=== PATIENT | female | born 1940 | race Caucasian/White ===

== ENCOUNTER → 2018-06-10 | Outpatient (CLI) | payer OTHER ==
[~2018-06-10] MED LIST: ASPI1TAB83 PO; CALC-440 PO; CARV6.252 PO; CHOL100027 PO; EZET10TA47 PO; GLYB5TAB8 PO; LYSI500C4 PO; MAGN400C2 PO; METF1000 PO; MULTTAB58 PO; NIAC500T83 PO; NXM/40 PO; SIMV40TA4 PO; SITA50TA PO
[2018-06-10 17:23] LABS: ALT/SGPT 19 U/L (12-78); AST/SGOT 12 U/L (15-37); BLOOD UREA NITROGEN 16 mg/dl (7-18); CALCIUM 8.9 mg/dl (8.5-10.1); CARBON DIOXIDE 27 mmol/L (21-32); CHOLESTEROL 109 mg/dl (0-200); CREATININE 1.01 mg/dl (0.60-1.20); GLUCOSE 101 mg/dl (70-99); LDL CHOLESTEROL CALCULATED 25 mg/dl; POTASSIUM 3.8 mmol/L (3.5-5.1); SODIUM 140 mmol/L (136-145)
[2018-06-10 17:30] LABS: CREATININE RANDOM URINE 66.8 mg/dl
[2018-06-11 06:26] LABS: HEMOGLOBIN A1C 6.2 % (4.5-5.6)
== END | disposition home or self-care (01) ==
LOC: C.LABPBG 15:19
PROVIDERS: ATTEND Family Medicine
DX: E11.9 Type 2 diabetes mellitus without complications (principal); E78.5 Hyperlipidemia, unspecified

== ENCOUNTER 2022-08-06 09:27 | Observation (INO) ==
[~2022-08-06 09:27] MED LIST changes: -ASPI1TAB83 PO; -CALC-440 PO; -CARV6.252 PO; -CHOL100027 PO; -EZET10TA47 PO; -GLYB5TAB8 PO; -LYSI500C4 PO; -MAGN400C2 PO; -METF1000 PO; -MULTTAB58 PO; -NIAC500T83 PO; -NXM/40 PO; +RAPID SEQUENCE INDUCTION BAG ONE; -SIMV40TA4 PO; -SITA50TA PO
[2022-08-06] MEDS ORDERED: OPTIRAY 300 500mL IV ONE (09:38)
--- NOTE | 2022-08-06 10:05 | CT Scan Report ---
UNENHANCED CT OF THE BRAIN; CT ANGIOGRAM OF THE BRAIN; CT ANGIOGRAM OF THE NECK CLINICAL HISTORY: Change in mental status. Strokelike symptoms. COMPARISON STUDY: MRI of the brain dated 03/21/2019. TECHNIQUE: Unenhanced axial CT scan of the brain is performed. Subsequently, following the IV adminis tration of 110 of [address] 300, CT angiogram of the head and neck was performed from the aortic arch t o the vertex. Images are reviewed in the axial, sagittal, and coronal planes. 3-D MIPS images are cre ated and assessed. IV contrast was administered without complication. All measurements were calculate d based on NASCET criteria. A dose lowering technique was utilized adhering to the principles of ALA RA. 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 There is no hemorrhage, mass effect, or evidence of acute territorial isc hemia by CT criteria. There is no evidence of enhancing mass lesion on the angiogram phase images. Th e ventricles, sulci, and cisterns are prominent secondary to involutional change. Crum-white matter d ifferentiation is preserved. No extra-axial fluid collection is seen. Thoracic aorta: Visualized portions of the thoracic aorta are normal in caliber. The aortic arch demo nstrates 4-vessel variant anatomy. The left vertebral artery arises directly from the arch. Right carotid arterial system: The right common carotid artery is widely patent, as are the right int ernal and external carotid arteries. Calcified plaque is noted in the carotid bulb. Left carotid arterial system: The left common carotid artery is widely patent, as are the left internal recruiter al and external carotid arteries. Calcified plaque is noted in the carotid bulb. Vertebral arteries: The vertebral arteries are widely patent bilaterally noting right-sided dominance . Subclavian arteries: Widely patent bilaterally. Intracranial vasculature: There is atherosclerotic calcification of the cavernous carotid arteries. T he [place] is developmentally complete. The internal carotid arteries are patent at the skul l base, as are the anterior and middle cerebral arteries bilaterally. The vertebrobasilar system and posterior cerebral arteries are widely patent. The right vertebral artery is dominant. There is no an eurysm, high-grade stenosis, or focal vessel cut off seen throughout the intracranial circulation. Jugular veins: Patent bilaterally. Dural sinuses: Patent. Lung apices: Partially visualized upper lobe lung parenchyma appears clear. Soft tissues: The visualized pharyngeal soft tissues are normal in appearance noting angiographic pha se technique. The oropharyngeal airway appears widely patent. The salivary and thyroid glands are nor mal in appearance. No cervical lymphadenopathy is seen. Skeletal structures: The skeletal structures are osteopenic. The calvarium appears intact. The cervic al spine is maintained noting multilevel spondylosis. No lytic or blastic lesion is seen. Orbits: The bony orbits are intact. Orbital contents are normal as visualized. Sinuses and mastoids: The paranasal sinuses are clear. The mastoid air cells are well pneumatized. Ce rumen is noted in the right external auditory canal. IMPRESSION: 1. There is no hemorrhage, mass effect, or evidence of acute territorial ischemia by CT criteria. 2. Unremarkable CT angiogram of the brain. 3. Unremarkable CT angiogram of the neck. ACT 112: Negative or not required by law. Electronically signed by: Gavin Reyes M.D. 08/06/2022 10:03 AM
[2022-08-06 10:06] LABS: Basophils # (auto) 0.07 K/uL (0-0.2); Basophils % (auto) 1.2 %; Eosinophils # (auto) 0.34 K/uL (0-0.50); Eosinophils % (auto) 5.9 %; Hematocrit (blood only) 38.7 % (34.1-44.9); Immature Granulocytes # (auto) 0.01 K/uL (0.00-0.02); Immature Granulocytes % (auto) 0.2 %; Lymphocytes # (auto) 2.62 K/uL (1.2-3.4); Lymphocytes % (auto) 45.4 %; Mean Corpuscular Hemoglobin 30.4 pg (25.0-34.0); Mean Corpuscular Hgb Conc 33.6 g/dL (32.0-36.0); Mean Corpuscular Volume 90.6 fL (80.0-100.0); Mean Platelet Volume 10.5 fL (9.4-12.3); Monocytes # (auto) 0.43 K/uL (0.24-0.82); Monocytes % (auto) 7.5 %; Neutrophils % (auto) 39.8 %; Platelet Count 220 K/uL (130-400); RDW Coefficient of Variation 14.6 % (11.5-14.5); RDW Standard Deviation 48.8 fL (36.4-46.3); Red Blood Count 4.27 M/uL (3.93-5.22); White Blood Count 5.77 K/ul (4.8-10.8)
[2022-08-06 10:21] LABS: INR 1.1 (0.9-1.1); Partial Thromboplastin Ratio 0.9; Partial Thromboplastin Time 23.9 Seconds (21.0-31.0); Prothrombin Time 11.2 Seconds (9.0-12.0)
[2022-08-06 10:25] LABS: Appearance Urine Cloudy (Clear); Bilirubin Urine Negative (Negative); Blood Urine 1+ (Negative); Color Urine Yellow; Glucose Urine UA 2+ (Negative); Ketones Urine Negative (Negative); Leukocyte Esterase Urine Negative (Negative); Nitrite Urine Negative (Negative); Protein Urine Negative (Negative); RBC Urine Automated 0-4 /hpf (0-4); Specific Gravity Urine 1.041 (1.000-1.030); Urobilinogen Urine Negative (Negative)
--- NOTE | 2022-08-06 10:30 | XRay Report ---
SINGLE VIEW CHEST CLINICAL HISTORY: Strokelike symptoms. FINDINGS: An AP, portable, upright chest radiograph is compared to study dated 04/28/2022 and correlat ed with chest CT dated 06/27/2022. The cardiomediastinal silhouette is unremarkable. The lungs and ple ural spaces are clear. No pneumothorax is seen. The skeletal structures are osteopenic. The bony thor ax is grossly intact. IMPRESSION: No active disease in the chest. ACT 112: Negative or not required by law. Electronically signed by: Gavin Reyes M.D. 08/06/2022 10:29 AM
[2022-08-06 10:32] LABS: Albumin Globulin Ratio 1.2 (0.9-2); Albumin Level 3.8 gm/dl (3.4-5.0); BUN Creatinine Ratio 21.3 (10-20); Calcium 9.3 mg/dl (8.5-10.1); Creatinine Clr Calc Pharmacy 24.7 ml/min; Est GFR (African American) 41.9 ml/min; Est GFR (Non-African American) 36.1 ml/min; Globulin 3.2 gm/dl (2.5-4.0); Magnesium 1.8 mg/dl (1.7-2.4); Potassium 3.9 mmol/L (3.5-5.1)
[2022-08-06 10:39] LABS: Troponin I High Sensitivity 8.3 pg/ml (0-14)
[2022-08-06] MEDS ORDERED: ACETAMINOPHEN 500 MG TAB PO STA (10:53)
[2022-08-06 11:01] LABS: Amorphous Sediment Urine Present (None Prsent); Bacteria Urine Automated 1+ (Negative)
--- NOTE | 2022-08-06 11:09 | Emergency Department Note ---
History of Present Illness General Chief complaint: Neuro Symptoms/Deficit History of Present Illness 82-year-old female presents to the ED with a chief complaint alteration in mental status. The patient awoke this morning and was feeling fine. She states that she developed a bad headache and a dizzy spell and then found herself on the floor. The family states that she was doing some work in the kitchen when they found her on the floor. They believe that she fell but mostly collapsed onto her self. The did not feel that she struck her head. The patient, according to family seemed to be slurring her speech and not speaking normally. EMS was called around 8:25 AM. They found the patient have a right-sided facial droop and slurred speech and garbled speech. The patient was transported to the ED for evaluation. They did report that her heart rate at 1 point was in the 30s. This patient started having improvement of her symptoms shortly after she arrived to the ED and went over to CT scan. By the time she arrived to room A1 he was awake, alert and oriented and only complained of feeling a little shaky. The family states that after she had had her episode at home, she was not able to answer questions for a minute or 2. She was then able to answer questions and then went back to a state where she was unable to answer questions. This happened a couple of times while she was at home. The patient states that her headache went away upon her evaluation here but then it returned while she was here. It was a frontal headache. Home Medications Medication Instructions Recorded Confirmed Type multivitamin 1 tab PO DAILY #30 tabs 04/24/19 08/06/22 Rx cholecalciferol (vitamin D3) 50 2,000 units PO DAILY #90 tabs 10/27/19 08/06/22 Rx mcg (2,000 unit) tablet albuterol sulfate 90 mcg/actuation 2 puff inhalation Q6H PRN 01/09/22 08/06/22 Rx aerosol inhaler (Ventolin HFA) shortness of breath or wheezing #54 grams famotidine 40 mg tablet 40 mg PO BID #180 tabs 01/09/22 08/06/22 Rx fluticasone furoate 100 1 inh inhalation DAILY #30 ea 01/09/22 08/06/22 Rx mcg/actuation blister powder for inhalation (Arnuity Ellipta) lysine 1,000 mg tablet 1,000 mg PO DAILY #90 tabs 01/09/22 08/06/22 Rx omega-3 acid ethyl esters 1 gram 1 cap PO DAILY #30 caps 01/09/22 08/06/22 Rx capsule blood sugar diagnostic #100 ea 03/09/22 07/24/22 Rx lancets 33 gauge (WilliamTouch Delica #100 ea 03/09/22 07/24/22 Rx Lancets) meclizine 12.5 mg tablet 12.5 mg PO TID PRN Dizziness 03/14/22 08/06/22 History isosorbide dinitrate 30 mg tablet 30 mg PO DAILY #30 tabs 05/19/22 08/06/22 Rx amlodipine 2.5 mg tablet 2.5 mg PO DAILY #90 tabs 07/11/22 08/06/22 Rx clopidogrel 75 mg tablet 75 mg PO DAILY #90 tabs 07/11/22 08/06/22 Rx ezetimibe 10 mg tablet 10 mg PO DAILY #90 tabs 07/11/22 08/06/22 Rx lisinopril 10 mg tablet 10 mg PO DAILY #90 tabs 07/11/22 08/06/22 Rx magnesium oxide 400 mg PO DAILY #90 tabs 07/11/22 08/06/22 Rx montelukast 10 mg tablet 10 mg PO QPM #90 tabs 07/11/22 08/06/22 Rx donepezil 10 mg tablet 10 mg PO DAILY 30 days #30 tabs 07/13/22 08/06/22 Rx Wrist splint cock up #1 ea 07/24/22 07/24/22 Rx aspirin 81 mg tablet,delayed 81 mg PO DAILY 08/06/22 08/06/22 History release atorvastatin 40 mg tablet 40 mg PO HS 08/06/22 08/06/22 History cyanocobalamin (vitamin B-12) 1,000 mcg PO QAM 08/06/22 08/06/22 History 1,000 mcg tablet (Vitamin B-12) Allergies Allergy/AdvReac Type Severity Reaction Status Date / Time Penicillins Allergy Unknown hives Verified 08/06/22 10:19 omeprazole Allergy Verified 08/06/22 10:19 pantoprazole Allergy Verified 08/06/22 10:19 rabeprazole Allergy Verified 08/06/22 10:19 ranolazine [From Ranexa] Allergy Verified 08/06/22 10:19 peanut AdvReac Intermediate GI Symptoms Unverified 08/06/22 10:19 Past Med/Surg History Medical History Asthma Coronary artery disease Deafness in right ear GERD without esophagitis History of heart attack (06/2017) Hyperlipidemia Hypertension Insomnia Mild cognitive impairment Osteoarthritis Pulmonary nodule Type 2 diabetes mellitus Surgical History Cystocele with rectocele Repaired H/O heart artery stent (06/2017) History of cholecystectomy History of total hysterectomy with removal of both tubes and ovaries d/t DUB S/P cardiac catheterization 10/20/19- Dr. Edmond Bunch Family History Brother Alcoholism Son Coronary heart disease Daughter Coronary heart disease Hypertension Myocardial infarction ID age 58 Sister Dementia Other No pertinent family history Denies family history of Ovarian cancer Prostate cancer Breast cancer Colorectal cancer Social History Smoking Status: Former smoker Tobacco Type: Cigarettes Age Started Using Tobacco: 18; Age Quit Using Tobacco: 28; packs per day: 3; Years Smoked: 10; Cigarettes Per Day: 3 ppd since age 18, quit 1967; Second Hand Exposure: Yes; Hx Alcohol Use: No (previously drank "alot", could not clarify) Hx Substance Use: No Preferred Language: Cuban Communication Ability: Effective Visual Impairment: No Limitations Hearing Ability: Use of Hearing Aid Founder Required: No Beliefs That Will Affect Care: None marital status: / Current Living Situation: Family Current Living Situation Comment: lives with son in own home 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 Safe at Home: Yes Childhood Exposure to Second-Hand Smoke: Yes Diet Comment: Doesn't diet or watch what she eats. caffeine: Yes (Coffee and Tea - half cup occasional - no soda) during the past year weight has: remained stable Dental Care, Regularly: Yes Physical Activity Frequency: Daily Physical Activity Frequency Comment: Walking/stationary bike Seatbelt Use: always Sunscreen Use: Yes Review of Systems A total of 10 systems reviewed and were otherwise negative Physical Exam Vital Signs Vital Signs - 24 hr 08/06/22 09:44 08/06/22 09:45 08/06/22 09:47 Temperature 36.6 C Temperature Source Oral Pulse Rate 51 L 119 H 47 L Pulse Rate from SpO2 Sensor 55 L Respiratory Rate 22 18 18 Respiratory Effort / Characteristics Non-Labored Spontaneous Respiratory Depth Normal Blood Pressure 164/69 H Blood Pressure Mean 100 Pulse Oximetry 100 94 Oxygen Delivery Method Room Air Sepsis Recent Fever Within 48 Hours No Sepsis New/Unexplained Change in Mental Status No Sepsis Action Taken by Nursing No Action Required 08/06/22 09:47 08/06/22 09:50 08/06/22 10:00 Temperature Temperature Source Pulse Rate 61 61 Pulse Rate from SpO2 Sensor 59 L 58 L Respiratory Rate 17 17 Respiratory Effort / Characteristics Respiratory Depth Blood Pressure 164/69 H Blood Pressure Mean 100 Pulse Oximetry 100 100 Oxygen Delivery Method Sepsis Recent Fever Within 48 Hours Sepsis New/Unexplained Change in Mental Status Sepsis Action Taken by Nursing 08/06/22 10:15 08/06/22 10:15 08/06/22 10:30 Temperature Temperature Source Pulse Rate 43 L Pulse Rate from SpO2 Sensor 48 L 51 L Respiratory Rate 25 H 20 Respiratory Effort / Characteristics Respiratory Depth Blood Pressure 155/89 H 168/78 H Blood Pressure Mean 111 108 Pulse Oximetry 93 100 Oxygen Delivery Method Sepsis Recent Fever Within 48 Hours Sepsis New/Unexplained Change in Mental Status Sepsis Action Taken by Nursing CONSTITUTIONAL/VITAL SIGNS: Reviewed / noted above. GENERAL: Non-toxic in appearance. INTEGUMENTARY: Warm, dry, and Andres. HEAD: Normocephalic. EYES: without scleral icterus or trauma. ENT/OROPHARYNX: clear and moist. LYMPHADENOPATHY/NECK: Is supple without lymphadenopathy or meningismus. RESPIRATORY: Clear to auscultation bilaterally. No increased work of breathing. CARDIOVASCULAR: Regular rate and rhythm. GI/ABDOMEN: Soft and nontender. No organomegaly or pulsatile mass. EXTREMITIES: Warm and well perfused. BACK: No CVA tenderness. NEUROLOGICAL: Intact without focal deficits. PSYCHIATRIC: normal affect. MUSCULOSKELETAL: Normally developed with good muscle tone. TRIAGE NURSING DOCUMENTATION REVIEWED. Course Administered Medications Discontinued Medications Ioversol (Optiray 300 500ml) 110 ml IV ONCE ONE Stop: 08/06/22 09:39 Last Admin: 08/06/22 09:40 Dose: 110 ml Documented By: CHANTELL Thomasaneous (Rapid Sequence Induction Bag) Confirm Administered Dose 1 each .ROUTE .STK-MED ONE Stop: 08/06/22 09:23 Last Admin: 08/06/22 10:10 Dose: Not Given Documented By: HS Medical Decision Making Differential Diagnosis Differential includes acute coronary syndrome, myocardial infarction, CVA, TIA, anemia, infection, pneumonia, UTI, pyelonephritis, poor nutrition, dehydration, electrolyte disturbance,hypoglycemia. Medical Records Attestation: I reviewed the patient's medical records. Home Medications Current Medication List: was personally reviewed by me Laboratory Data Attestation: I reviewed the patient's lab results. Result diagrams: 08/06/22 09:51 08/06/22 09:51 Lab Results 08/06/22 08/06/22 08/06/22 Range/Units 09:51 09:51 09:51 WBC 5.77 (4.8-10.8) K/ul RBC 4.27 (3.93-5.22) M/uL Hgb 13.0 (12.0-16.0) g/dl Hct 38.7 (34.1-44.9) % MCV 90.6 (80.0-100.0) fL MCH 30.4 (25.0-34.0) pg MCHC 33.6 (32.0-36.0) g/dL RDW Std Deviation 48.8 H (36.4-46.3) fL RDW Coeff of Des 14.6 H (11.5-14.5) % Plt Count 220 (130-400) K/uL MPV 10.5 (9.4-12.3) fL Immature Gran % (Auto) 0.2 % Neut % (Auto) 39.8 % Lymph % (Auto) 45.4 % [place] % (Auto) 7.5 % Eos % (Auto) 5.9 % Baso % (Auto) 1.2 % Neut # (Auto) 2.30 (1.4-6.5) K/uL Lymph # (Auto) 2.62 (1.2-3.4) K/uL [place] # (Auto) 0.43 (0.24-0.82) K/uL Eos # (Auto) 0.34 (0-0.50) K/uL Baso # (Auto) 0.07 (0-0.2) K/uL Immature Gran # (Auto) 0.01 (0.00-0.02) K/uL PT 11.2 (9.0-12.0) Seconds INR 1.1 (0.9-1.1) APTT 23.9 (21.0-31.0) Seconds PTT Ratio 0.9 Sodium (136-145) mmol/L Potassium (3.5-5.1) mmol/L Chloride (98-107) mmol/L Carbon Dioxide (21-32) mmol/L Anion Gap (3-11) BUN (6-23) mg/dl Creatinine (0.6-1.2) mg/dl Est Cr Clr Drug Dosing ml/min Est GFR ( Amer) ml/min Est GFR (Non-Af Amer) ml/min BUN/Creatinine Ratio (10-20) Glucose (70-99(Fasting)) mg/dl POC Glucose (70-99) mg/dl Lactate 1.8 (0.4-2.0) mmol/L Calcium (8.5-10.1) mg/dl Magnesium (1.7-2.4) mg/dl Total Bilirubin (0.2-1.0) mg/dl AST (13-39) U/L ALT (7-52) U/L Alkaline Phosphatase (34-104) U/L Troponin I High Sens (0-14) pg/ml Total Protein (6.0-8.3) gm/dl Albumin (3.4-5.0) gm/dl Globulin (2.5-4.0) gm/dl Albumin/Globulin Ratio (0.9-2) Urine Color Urine Appearance (Clear) Urine pH (4.5-7.5) Ur Specific [place] (1.000-1.030) Urine Protein (Negative) Urine Glucose (UA) (Negative) Urine Ketones (Negative) Urine Blood (Negative) Urine Nitrite (Negative) Urine Bilirubin (Negative) Urine Urobilinogen (Negative) Ur Leukocyte Esterase (Negative) Urine WBC (Auto) (0-5) /hpf Urine RBC (Auto) (0-4) /hpf U Hyaline Cast (Auto) (0-5) /lpf U Epithel Cells (Auto) (0-5) /lpf Urine Bacteria (Auto) (Negative) Urine Crystals Uric Acid Crystals Amorphous Sediment (None Prsent) Urine Yeast Blood Type Antibody Screen 08/06/22 08/06/22 08/06/22 Range/Units 09:51 09:51 09:55 WBC (4.8-10.8) K/ul RBC (3.93-5.22) M/uL Hgb (12.0-16.0) g/dl Hct (34.1-44.9) % MCV (80.0-100.0) fL MCH (25.0-34.0) pg MCHC (32.0-36.0) g/dL RDW Std Deviation (36.4-46.3) fL RDW Coeff of Des (11.5-14.5) % Plt Count (130-400) K/uL MPV (9.4-12.3) fL Immature Gran % (Auto) % Neut % (Auto) % Lymph % (Auto) % [place] % (Auto) % Eos % (Auto) % Baso % (Auto) % Neut # (Auto) (1.4-6.5) K/uL Lymph # (Auto) (1.2-3.4) K/uL [place] # (Auto) (0.24-0.82) K/uL Eos # (Auto) (0-0.50) K/uL Baso # (Auto) (0-0.2) K/uL Immature Gran # (Auto) (0.00-0.02) K/uL PT (9.0-12.0) Seconds INR (0.9-1.1) APTT (21.0-31.0) Seconds PTT Ratio Sodium 137 (136-145) mmol/L Potassium 3.9 (3.5-5.1) mmol/L Chloride 102 (98-107) mmol/L Carbon Dioxide 26 (21-32) mmol/L Anion Gap 9 (3-11) BUN 29 H (6-23) mg/dl Creatinine 1.36 H (0.6-1.2) mg/dl Est Cr Clr Drug Dosing 24.7 ml/min Est GFR ( Amer) 41.9 ml/min Est GFR (Non-Af Amer) 36.1 ml/min BUN/Creatinine Ratio 21.3 H (10-20) Glucose 293 H (70-99(Fasting)) mg/dl POC Glucose 270 H (70-99) mg/dl Lactate (0.4-2.0) mmol/L Calcium 9.3 (8.5-10.1) mg/dl Magnesium 1.8 (1.7-2.4) mg/dl Total Bilirubin 1.0 (0.2-1.0) mg/dl AST 88 H (13-39) U/L ALT 115 H (7-52) U/L Alkaline Phosphatase 524 H (34-104) U/L Troponin I High Sens 8.3 (0-14) pg/ml Total Protein 7.0 (6.0-8.3) gm/dl Albumin 3.8 (3.4-5.0) gm/dl Globulin 3.2 (2.5-4.0) gm/dl Albumin/Globulin Ratio 1.2 (0.9-2) Urine Color Urine Appearance (Clear) Urine pH (4.5-7.5) Ur Specific [place] (1.000-1.030) Urine Protein (Negative) Urine Glucose (UA) (Negative) Urine Ketones (Negative) Urine Blood (Negative) Urine Nitrite (Negative) Urine Bilirubin (Negative) Urine Urobilinogen (Negative) Ur Leukocyte Esterase (Negative) Urine WBC (Auto) (0-5) /hpf Urine RBC (Auto) (0-4) /hpf U Hyaline Cast (Auto) (0-5) /lpf U Epithel Cells (Auto) (0-5) /lpf Urine Bacteria (Auto) (Negative) Urine Crystals Uric Acid Crystals Amorphous Sediment (None Prsent) Urine Yeast Blood Type O Positive Antibody Screen NEGATIVE 08/06/22 Range/Units 10:07 WBC (4.8-10.8) K/ul RBC (3.93-5.22) M/uL Hgb (12.0-16.0) g/dl Hct (34.1-44.9) % MCV (80.0-100.0) fL MCH (25.0-34.0) pg MCHC (32.0-36.0) g/dL RDW Std Deviation (36.4-46.3) fL RDW Coeff of Des (11.5-14.5) % Plt Count (130-400) K/uL MPV (9.4-12.3) fL Immature Gran % (Auto) % Neut % (Auto) % Lymph % (Auto) % [place] % (Auto) % Eos % (Auto) % Baso % (Auto) % Neut # (Auto) (1.4-6.5) K/uL Lymph # (Auto) (1.2-3.4) K/uL [place] # (Auto) (0.24-0.82) K/uL Eos # (Auto) (0-0.50) K/uL Baso # (Auto) (0-0.2) K/uL Immature Gran # (Auto) (0.00-0.02) K/uL PT (9.0-12.0) Seconds INR (0.9-1.1) APTT (21.0-31.0) Seconds PTT Ratio Sodium (136-145) mmol/L Potassium (3.5-5.1) mmol/L Chloride (98-107) mmol/L Carbon Dioxide (21-32) mmol/L Anion Gap (3-11) BUN (6-23) mg/dl Creatinine (0.6-1.2) mg/dl Est Cr Clr Drug Dosing ml/min Est GFR ( Amer) ml/min Est GFR (Non-Af Amer) ml/min BUN/Creatinine Ratio (10-20) Glucose (70-99(Fasting)) mg/dl POC Glucose (70-99) mg/dl Lactate (0.4-2.0) mmol/L Calcium (8.5-10.1) mg/dl Magnesium (1.7-2.4) mg/dl Total Bilirubin (0.2-1.0) mg/dl AST (13-39) U/L ALT (7-52) U/L Alkaline Phosphatase (34-104) U/L Troponin I High Sens (0-14) pg/ml Total Protein (6.0-8.3) gm/dl Albumin (3.4-5.0) gm/dl Globulin (2.5-4.0) gm/dl Albumin/Globulin Ratio (0.9-2) Urine Color Yellow Urine Appearance Cloudy A (Clear) Urine pH 8.0 H (4.5-7.5) Ur Specific [place] 1.041 H (1.000-1.030) Urine Protein Negative (Negative) Urine Glucose (UA) 2+ H (Negative) Urine Ketones Negative (Negative) Urine Blood 1+ H (Negative) Urine Nitrite Negative (Negative) Urine Bilirubin Negative (Negative) Urine Urobilinogen Negative (Negative) Ur Leukocyte Esterase Negative (Negative) Urine WBC (Auto) 1-5 (0-5) /hpf Urine RBC (Auto) 0-4 (0-4) /hpf U Hyaline Cast (Auto) 1-5 (0-5) /lpf U Epithel Cells (Auto) 5-10 H (0-5) /lpf Urine Bacteria (Auto) 1+ H (Negative) Urine Crystals Not Reportable Uric Acid Crystals [employer] Amorphous Sediment Present A (None Prsent) Urine Yeast Not Reportable Blood Type Antibody Screen Imaging Data Radiologist's Impression: Head CT 08/06/22 09:[address] OF THE BRAIN; CT ANGIOGRAM OF THE BRAIN; CT ANGIOGRAM OF THE NECK CLINICAL HISTORY: Change in mental status. Strokelike symptoms. COMPARISON STUDY: MRI of the brain dated 03/21/2019. TECHNIQUE: Unenhanced axial CT scan of the brain is performed. Subsequently, following the IV administration of 110 of Optiray 300, CT angiogram of the head and neck was performed from the aortic arch to the vertex. Images are reviewed in the axial, sagittal, and coronal planes. 3-D MIPS images are created and assessed. IV contrast was administered without complication. All measurements were calculated based on NASCET criteria. A dose lowering technique was utilized adhering to the principles of ALARA. CT DOSE: 1028.11 mGy.cm FINDINGS: Brain parenchyma: There is age-related involutional change noting mild subcortical and periventricular microangiopathic disease. There is no hemorrhage, mass effect, or evidence of acute territorial ischemia by CT criteria. There is no evidence of enhancing mass lesion on the angiogram phase images. The ventricles, sulci, and cisterns are prominent secondary to involutional change. Crum-white matter differentiation is preserved. No extra- axial fluid collection is seen. Thoracic aorta: Visualized portions of the thoracic aorta are normal in caliber. The aortic arch demonstrates 4-vessel variant anatomy. The left vertebral artery arises directly from the arch. Right carotid arterial system: The right common carotid artery is widely patent, as are the right internal and external carotid arteries. Calcified plaque is noted in the carotid bulb. Left carotid arterial system: The left common carotid artery is widely patent, as are the left internal and external carotid arteries. Calcified plaque is noted in the carotid bulb. Vertebral arteries: The vertebral arteries are widely patent bilaterally noting right-sided dominance. Subclavian arteries: Widely patent bilaterally. Intracranial vasculature: There is atherosclerotic calcification of the cavernous carotid arteries. The [place] of [place] is developmentally complete. The internal carotid arteries are patent at the skull base, as are the anterior and middle cerebral arteries bilaterally. The vertebrobasilar system and posterior cerebral arteries are widely patent. The right vertebral artery is dominant. There is no aneurysm, high-grade stenosis, or focal vessel cut off seen throughout the intracranial circulation. Jugular veins: Patent bilaterally. Dural sinuses: Patent. Lung apices: Partially visualized upper lobe lung parenchyma appears clear. Soft tissues: The visualized pharyngeal soft tissues are normal in appearance noting angiographic phase technique. The oropharyngeal airway appears widely patent. The salivary and thyroid glands are normal in appearance. No cervical lymphadenopathy is seen. Skeletal structures: The skeletal structures are osteopenic. The calvarium appears intact. The cervical spine is maintained noting multilevel spondylosis. No lytic or blastic lesion is seen. Orbits: The bony orbits are intact. Orbital contents are normal as visualized. Sinuses and mastoids: The paranasal sinuses are clear. The mastoid air cells are well pneumatized. Cerumen is noted in the right external auditory canal. IMPRESSION: 1. There is no hemorrhage, mass effect, or evidence of acute territorial ischemia by CT criteria. 2. Unremarkable CT angiogram of the brain. 3. Unremarkable CT angiogram of the neck. ACT 112: Negative or not required by law. Electronically signed by: Gavin Reyes M.D. 08/06/2022 10:03 AM Chest X-Ray 08/06/22 09:29 SINGLE VIEW CHEST CLINICAL HISTORY: Strokelike symptoms. FINDINGS: An AP, portable, upright chest radiograph is compared to study dated 04/28/2022 and correlated with chest CT dated 06/27/2022. The cardiomediastinal silhouette is unremarkable. The lungs and pleural spaces are clear. No pneumothorax is seen. The skeletal structures are osteopenic. The bony thorax is grossly intact. IMPRESSION: No active disease in the chest. ACT 112: Negative or not required by law. Electronically signed by: Gavin Reyes M.D. 08/06/2022 10:29 AM Head CTA 08/06/22 09:[address] OF THE BRAIN; CT ANGIOGRAM OF THE BRAIN; CT ANGIOGRAM OF THE NECK CLINICAL HISTORY: Change in mental status. Strokelike symptoms. COMPARISON STUDY: MRI of the brain dated 03/21/2019. TECHNIQUE: Unenhanced axial CT scan of the brain is performed. Subsequently, following the IV administration of 110 of Optiray 300, CT angiogram of the head and neck was performed from the aortic arch to the vertex. Images are reviewed in the axial, sagittal, and coronal planes. 3-D MIPS images are created and assessed. IV contrast was administered without complication. All measurements were calculated based on NASCET criteria. A dose lowering technique was utilized adhering to the principles of ALARA. CT DOSE: 1028.11 mGy.cm FINDINGS: Brain parenchyma: There is age-related involutional change noting mild subcortical and periventricular microangiopathic disease. There is no hemorrhage, mass effect, or evidence of acute territorial ischemia by CT criteria. There is no evidence of enhancing mass lesion on the angiogram phase images. The ventricles, sulci, and cisterns are prominent secondary to involutional change. Crum-white matter differentiation is preserved. No extra- axial fluid collection is seen. Thoracic aorta: Visualized portions of the thoracic aorta are normal in caliber. The aortic arch demonstrates 4-vessel variant anatomy. The left vertebral artery arises directly from the arch. Right carotid arterial system: The right common carotid artery is widely patent, as are the right internal and external carotid arteries. Calcified plaque is noted in the carotid bulb. Left carotid arterial system: The left common carotid artery is widely patent, as are the left internal and external carotid arteries. Calcified plaque is noted in the carotid bulb. Vertebral arteries: The vertebral arteries are widely patent bilaterally noting right-sided dominance. Subclavian arteries: Widely patent bilaterally. Intracranial vasculature: There is atherosclerotic calcification of the cavernous carotid arteries. The [place] of [place] is developmentally complete. The internal carotid arteries are patent at the skull base, as are the anterior and middle cerebral arteries bilaterally. The vertebrobasilar system and posterior cerebral arteries are widely patent. The right vertebral artery is dominant. There is no aneurysm, high-grade stenosis, or focal vessel cut off seen throughout the intracranial circulation. Jugular veins: Patent bilaterally. Dural sinuses: Patent. Lung apices: Partially visualized upper lobe lung parenchyma appears clear. Soft tissues: The visualized pharyngeal soft tissues are normal in appearance noting angiographic phase technique. The oropharyngeal airway appears widely patent. The salivary and thyroid glands are normal in appearance. No cervical lymphadenopathy is seen. Skeletal structures: The skeletal structures are osteopenic. The calvarium appears intact. The cervical spine is maintained noting multilevel spondylosis. No lytic or blastic lesion is seen. Orbits: The bony orbits are intact. Orbital contents are normal as visualized. Sinuses and mastoids: The paranasal sinuses are clear. The mastoid air cells are well pneumatized. Cerumen is noted in the right external auditory canal. IMPRESSION: 1. There is no hemorrhage, mass effect, or evidence of acute territorial isc hemia by CT criteria. 2. Unremarkable CT angiogram of the brain. 3. Unremarkable CT angiogram of the neck. ACT 112: Negative or not required by law. Electronically signed by: Gavin Reyes M.D. 08/06/2022 10:03 AM Neck CTA 08/06/22 09:[address] OF THE BRAIN; CT ANGIOGRAM OF THE BRAIN; CT ANGIOGRAM OF THE NECK CLINICAL HISTORY: Change in mental status. Strokelike symptoms. COMPARISON STUDY: MRI of the brain dated 03/21/2019. TECHNIQUE: Unenhanced axial CT scan of the brain is performed. Subsequently, following the IV administration of 110 of Optiray 300, CT angiogram of the head and neck was performed from the aortic arch to the vertex. Images are reviewed in the axial, sagittal, and coronal planes. 3-D MIPS images are created and assessed. IV contrast was administered without complication. All measurements were calculated based on NASCET criteria. A dose lowering technique was utilized adhering to the principles of ALARA. CT DOSE: 1028.11 mGy.cm FINDINGS: Brain parenchyma: There is age-related involutional change noting mild subcortical and periventricular microangiopathic disease. There is no hemorrhage, mass effect, or evidence of acute territorial ischemia by CT criteria. There is no evidence of enhancing mass lesion on the angiogram phase images. The ventricles, sulci, and cisterns are prominent secondary to involutional change. Crum-white matter differentiation is preserved. No extra- axial fluid collection is seen. Thoracic aorta: Visualized portions of the thoracic aorta are normal in caliber. The aortic arch demonstrates 4-vessel variant anatomy. The left vertebral artery arises directly from the arch. Right carotid arterial system: The right common carotid artery is widely patent, as are the right internal and external carotid arteries. Calcified plaque is noted in the carotid bulb. Left carotid arterial system: The left common carotid artery is widely patent, as are the left internal and external carotid arteries. Calcified plaque is noted in the carotid bulb. Vertebral arteries: The vertebral arteries are widely patent bilaterally noting right-sided dominance. Subclavian arteries: Widely patent bilaterally. Intracranial vasculature: There is atherosclerotic calcification of the cavernous carotid arteries. The [place] of [place] is developmentally complete. The internal carotid arteries are patent at the skull base, as are the anterior and middle cerebral arteries bilaterally. The vertebrobasilar system and posterior cerebral arteries are widely patent. The right vertebral artery is dominant. There is no aneurysm, high-grade stenosis, or focal vessel cut off seen throughout the intracranial circulation. Jugular veins: Patent bilaterally. Dural sinuses: Patent. Lung apices: Partially visualized upper lobe lung parenchyma appears clear. Soft tissues: The visualized pharyngeal soft tissues are normal in appearance noting angiographic phase technique. The oropharyngeal airway appears widely patent. The salivary and thyroid glands are normal in appearance. No cervical lymphadenopathy is seen. Skeletal structures: The skeletal structures are osteopenic. The calvarium appears intact. The cervical spine is maintained noting multilevel spondylosis. No lytic or blastic lesion is seen. Orbits: The bony orbits are intact. Orbital contents are normal as visualized. Sinuses and mastoids: The paranasal sinuses are clear. The mastoid air cells are well pneumatized. Cerumen is noted in the right external auditory canal. IMPRESSION: 1. There is no hemorrhage, mass effect, or evidence of acute territorial ischemia by CT criteria. 2. Unremarkable CT angiogram of the brain. 3. Unremarkable CT angiogram of the neck. ACT 112: Negative or not required by law. Electronically signed by: Gavin Reyes M.D. 08/06/2022 10:03 AM ECG Data Attestation: I personally reviewed and interpreted this ECG as follows: Additional Comments: Twelve-lead lead EKG: Per my interpretation shows a sinus rhythm at a rate of 50 with a left bundle branch block. This appears to be new compared to previous EKG done here. No PVCs. No ST elevation. Normal QTC. MDM Narrative 82-year-old female with possible TIA like symptoms as detailed above. The patient's EKG showed a sinus rhythm at a rate of 50 with a left bundle branch block. This appears to be new compared to previous EKG. CT scans and angiograms of the head and neck did not show any acute abnormalities. CBC and chemistry panel was unremarkable. Glucose is 293. She is a type II diabetic. Troponin was negative. AST and ALT are slightly elevated. This has not been previously documented. Chest x-ray did not show acute process. Urinalysis did not show infection. I did speak with hospitalist about the patient. She will be seen by the hospitalist for further evaluation and care. The patient did develop a headache while she was here. She was given Tylenol orally for this. Impression & Plan Brain TIA Discharge Plan Visit Data Chief Complaint: Neuro Symptoms/Deficit ED Provider: Stevenson Tran Discharge Problem: Brain TIA Patient Disposition: Being Evaluated by Hospitalist Forms Stand Alone Forms: My [facility] Prescriptions Prescriptions: No Action albuterol sulfate [Ventolin HFA] 90 mcg/actuation HFA aerosol inhaler 2 puff INH Q6H PRN (Reason: shortness of breath or wheezing) Qty: 54 0RF famotidine 40 mg tablet 40 mg PO BID Qty: 180 3RF Arnuity Ellipta 100 mcg/actuation blister with device 1 inh INH DAILY Qty: 30 5RF lysine 1,000 mg tablet 1,000 mg PO DAILY Qty: 90 1RF omega-3 acid ethyl esters 1 gram capsule 1 cap PO DAILY Qty: 30 5RF (DME) blood sugar diagnostic Strip See Rx Instructions .Route Qty: 100 5RF Rx Instructions: Onetouch Ultra Blue Test Strips / test once daily E11.9 (DME) lancets [OneTouch Delica Lancets] [facility] See Rx Instructions .ROUTE .MEDSUPPLY Qty: 100 5RF Rx Instructions: Test once daily. DX: E11.9 One Touch Verio Reflect isosorbide dinitrate 30 mg tablet 30 mg PO DAILY Qty: 30 5RF Rx Instructions: allow nitrate-free interval of 12-14 hrs per 24-hr period ezetimibe 10 mg tablet 10 mg PO DAILY Qty: 90 1RF lisinopril 10 mg tablet 10 mg PO DAILY Qty: 90 1RF amlodipine 2.5 mg tablet 2.5 mg PO DAILY Qty: 90 1RF montelukast 10 mg tablet 10 mg PO QPM Qty: 90 1RF clopidogrel 75 mg tablet 75 mg PO DAILY Qty: 90 1RF magnesium oxide 400 mg magnesium tablet 400 mg PO DAILY Qty: 90 1RF donepezil 10 mg tablet 10 mg PO DAILY 30 Days Qty: 30 3RF multivitamin tablet 1 tab PO DAILY Qty: 30 5RF cholecalciferol (vitamin D3) 2,000 unit tablet 2,000 units PO DAILY Qty: 90 3RF meclizine 12.5 mg tablet 12.5 mg PO TID PRN (Reason: Dizziness) (DME) Wrist splint cock up See Rx Instructions .Route .MEDSUPPLY Qty: 1 0RF Rx Instructions: As directed cyanocobalamin (vitamin B-12) [Vitamin B-12] 1,000 mcg tablet 1,000 mcg PO QAM aspirin 81 mg tablet,delayed release (DR/EC) 81 mg PO DAILY atorvastatin 40 mg tablet 40 mg PO HS Referrals Referrals: Kaylen Leonardo DO [Primary Care Provider] -
--- NOTE | 2022-08-06 11:23 | History & Physical Report ---
Date of Service August 06, 2022 Assessment & Plan (1) Stroke-like symptoms: Plan: -Admit to med tele -Patient is currently afebrile, hemodynamically stable, stable on room air, and back to her neurologic baseline -History is concerning for possible TIA, but she potentially could have had Hypertensive emergency with the history of her hypertension with symptoms as well. Unsure of the pill she took this am prior to her symptoms, but if it was for a runny nose it could have possibly been Sudafed, causing hypertension. 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 ECG from today, this is new from prior ECG which showed a RBBB, continue to monitor on tele for now (2) Elevated LFTs: Plan: -AST, ALT, and Alk phos all elevated today, total bili WNL -Patient does not have a history of liver disease, lyme, hepatitis, and drug use, stopped drinking in 2006 when she had her MN -Has been doing alot of yard work recently and also has a dog -Will order tick born panel, hepatitis panel, and US of the liver to start her workup -Hold Statin and Zetia for now with elevated LFTs -Continue to trend LFTs (3) YAIR (acute kidney injury): Plan: -Cr today noted to be 1.39, baseline appears to be around 1.0 -Could be prerenal as she has no urinary issues -Will give a 1L NSS bolus now and trend renal function (4) Type 2 diabetes mellitus: Plan: -Currently trying to control blood sugar with diet and exercise -Noted to be hyperglycemic today -Will add on A1C -Will start with Glargine 5 units BID, Correction factor of 75 and carb ration of 25 (5) Asthma: Plan: -Continue as needed albuterol (6) Hypertension: Plan: -Continue amlodipine but hold lisinopril for now with YAIR, restart lisinopril when YAIR has resolved (7) Hyperlipidemia: Plan: -Hold statin and Zetia for now with elevated LFTs, resume when they reach baseline (8) History of heart attack: Plan: -Continue aspirin, plavix, and Isosorbide dinitrate (9) GERD without esophagitis: Plan: -Continue famotidine (10) Coronary artery disease: Plan: -See hx of heart attack and stroke symptoms (11) Mild cognitive impairment: Plan: -Currently at cognitive baseline -Continue Donepizil Plan The patient was discussed with Dr. Rodrigues at the time of admission History of Present Illness Chief Complaint: Stroke symptoms Primary Care Provider: Kaylen Leonardo DO Sherrie is an 82 year old female with a PMH significant for CAD, previous MN in 2017, HTN, Hyperlipidemia, asthma, DM II, and mild cognitive impairment who presented to the [facility] ED on 08/06/22 due to stroke-like symptoms. Per chart review, the patient reportedly complained of a severe headache this am to her family, she then had an episode of AMS with slurred speech. Her family reported that she was dizzy and then fell, they do not think that she hit her head. Per EMS, the patient was noted to have slurred speech and right facial droop, they said these symptoms began to improve as they arrived to the ED. The patient's HR reportedly fell to the 30's in route and she was hypertensive. Per the ED staff, by the time they evaluated the patient after her CT her facial drop and slurred speech had resolved. In the Ed the patient was noted to be afebrile, hypertensive at 168/78, and bradycardic with HR in the 40's. Labs were significant for a creatinine of 1.36 (baseline appears to be around 1.0), glucose of 293, AST of 88, ALT of 115, alk phos of 524. CT of the head, CTA of the head/neck, and CXR were all negative for acute changes. The patient was recommended for observation for continued workup of her stroke symptoms and elevated LFTs. At the time of the exam the patient was sitting up in bed in no acute distress with her family and fiance sitting bedside. The patient lives with her Fiance and his daughter who also help to provide history of the episode this am. They state that she has been doing well and in her normal state of health. She has baseline issues with her short-term memory but no other neurologic or cognitive problems. She and her fiance have been active lately chopping and stacking wood in preparation for the winter. This morning the patient woke up and felt like her normal self. She had a runny nose so she took a "red pill" of which her Fiance's daughter believes it was a generic Coricidin but will double check when she goes back home. The patient checked her blood sugar prior to breakfast and it was 147. After breakfast she was in the kitchen when she developed a tingling/numbness on her forehead. She then developed a severe headache in the same distribution, felt dizzy and fell to the ground. She thinks she mad have lost consciousness for a few seconds but then quickly regained consciousness. Her fiandrew and his daughter found her on the ground and deny seeing any signs of seizure like activity; she did not lose control of her bowels/bladder but they state that she was confused for 5-10 minutes after the event. Her family states that they did not see any facial drooping prior to EMS arriving. She has been on Aspirin (81 mg daily), plavix (75 mg daily), and atorvastatin (40 mg daily) since her previous MN and stent placement in 2006. She has not started any other new medications recently, and stopped drinking alcohol and smoking after her MN in 2006. Her baseline mental status is alert and oriented to person, place, month, year, but she does not follow politics and does not remember who the current president is. She and her family are in agreem ent about her being admitted for further workup of her neurologic symptoms and elevated LFTs. She denies a history of cirrhosis or problems with her liver, previous Lyme infection, and hepatitis. She has not noticed any recent tick bites or rashes and she does have a dog at home. She denies any recent fevers, chills, chest pain, SOB, heart palpitations, Allergies Allergy/AdvReac Type Severity Reaction Status Date / Time Penicillins Allergy Unknown hives Verified 08/11/22 08:10 omeprazole Allergy Verified 08/11/22 08:10 pantoprazole Allergy Verified 08/11/22 08:10 rabeprazole Allergy Verified 08/11/22 08:10 ranolazine [From Ranexa] Allergy Verified 08/11/22 08:10 peanut AdvReac Intermediate GI Symptoms Unverified 08/11/22 08:10 Home Medications Medication Instructions Recorded Confirmed Type multivitamin 1 tab PO DAILY #30 tabs 04/24/19 08/11/22 Rx cholecalciferol (vitamin D3) 50 2,000 units PO DAILY #90 tabs 10/27/19 08/11/22 Rx mcg (2,000 unit) tablet albuterol sulfate 90 mcg/actuation 2 puff inhalation Q6H PRN 01/09/22 08/11/22 Rx aerosol inhaler (Ventolin HFA) shortness of breath or wheezing #54 grams famotidine 40 mg tablet 40 mg PO BID #180 tabs 01/09/22 08/11/22 Rx fluticasone furoate 100 1 inh inhalation DAILY #30 ea 01/09/22 08/11/22 Rx mcg/actuation blister powder for inhalation (Arnuity Ellipta) omega-3 acid ethyl esters 1 gram 1 cap PO DAILY #30 caps 01/09/22 08/11/22 Rx capsule blood sugar diagnostic #100 ea 03/09/22 08/11/22 Rx lancets 33 gauge (OneTouch Delica #100 ea 03/09/22 08/11/22 Rx Lancets) meclizine 12.5 mg tablet 12.5 mg PO TID PRN Dizziness 03/14/22 08/11/22 History isosorbide dinitrate 30 mg tablet 30 mg PO DAILY #30 tabs 05/19/22 08/11/22 Rx amlodipine 2.5 mg tablet 2.5 mg PO DAILY #90 tabs 07/11/22 08/11/22 Rx clopidogrel 75 mg tablet 75 mg PO DAILY #90 tabs 07/11/22 08/11/22 Rx lisinopril 10 mg tablet 10 mg PO DAILY #90 tabs 07/11/22 08/11/22 Rx magnesium oxide 400 mg PO DAILY #90 tabs 07/11/22 08/11/22 Rx montelukast 10 mg tablet 10 mg PO QPM #90 tabs 07/11/22 08/11/22 Rx Wrist splint cock up #1 ea 07/24/22 08/11/22 Rx aspirin 81 mg tablet,delayed 81 mg PO DAILY 08/06/22 08/11/22 History release cyanocobalamin (vitamin B-12) 1,000 mcg PO QAM 08/06/22 08/11/22 History 1,000 mcg tablet (Vitamin B-12) metformin 500 mg tablet,extended 500 mg PO DAILY #30 tabs 08/09/22 08/11/22 Rx release 24 hr lysine 1,000 mg tablet 1,000 mg PO DAILY #90 tabs 08/10/22 08/11/22 Rx Past Med/Surg History Medical History Asthma Coronary artery disease Deafness in right ear GERD without esophagitis History of heart attack (06/2017) Hyperlipidemia Hypertension Insomnia Mild cognitive impairment Osteoarthritis Pulmonary nodule Type 2 diabetes mellitus Surgical History Cystocele with rectocele H/O heart artery stent (06/2017) History of cholecystectomy History of total hysterectomy with removal of both tubes and ovaries S/P cardiac catheterization Family History Brother Alcoholism Son Coronary heart disease Daughter Coronary heart disease Hypertension Myocardial infarction Sister Dementia Other No pertinent family history Denies family history of Ovarian cancer Prostate cancer Breast cancer Colorectal cancer Social History Smoking Status: Former smoker Tobacco Type: Cigarettes Age Started Using Tobacco: 18; Age Quit Using Tobacco: 28; packs per day: 3; Years Smoked: 10; Cigarettes Per Day: 3 ppd since age 18, quit 1967; Second Hand Exposure: No; Hx Alcohol Use: No Hx Substance Use: No Preferred Language: Iranian Communication Ability: Effective Visual Impairment: No Limitations Hearing Ability: Use of Hearing Aid Planning Division Superintendent Required: No Beliefs That Will Affect Care: None marital status: Single Current Living Situation: Family and Significant Other Current Living Situation Comment: lives with fiance and daughter in law 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 Safe at Home: Yes Childhood Exposure to Second-Hand Smoke: Yes Diet Comment: Doesn't diet or watch what she eats. caffeine: Yes (Coffee and Tea - half cup occasional - no soda) during the past year weight has: remained stable Dental Care, Regularly: Yes Physical Activity Frequency: Daily Physical Activity Frequency Comment: Walking/stationary bike Seatbelt Use: always Sunscreen Use: Yes Assistive Devices: Cane and Walker Review of Systems Review of Systems: Denies current fever, chills, headache, changes in vision, hearing, taste, and smell, chest pain, SOB, cough, abdominal pain, nausea, vomiting, diarrhea, hematemesis, melena, dysuria, hematuria All systems have been reviewed and are otherwise negative. Physical Exam Physical Exam: Physical Exam: General: In no acute distress, stated age, well-nourished, good hygiene HEENT: Normocephalic, atraumatic, no scleral icterus, pupils around round, symmetrical, and reactive to light, moist mucus membranes, uvula midline with symmetrical palate, trachea midline, no thyromegaly Chest/Pulm: No respiratory distress, symmetrical chest expansion, clear breath sounds throughout Cardiac: bradycardic rate, regular rhythm,, no murmurs noted Abdomen: Negative for ascites and bruising, normoactive bowel sounds, soft, non-tender to palpation throughout Musculoskeletal: Symmetrical and without signs of acute trauma, upper and lower extremities with full ROM, no atrophy, spasticity, or flaccidity Extremities: Radial, dorsalis pedis, and posterior tibial pulses are intact and symmetrical, no edema noted in the BL LE's Skin: Warm, dry, no rashes , lesions, or scars noted Neuro: Alert and oriented to person, place, month, year,, no focal defects, CN II-XII tested and intact, finger to nose test negative, no tremors noted Psych: No acute distress, calm and cooperative during the exam Results & Data Results & Data ([facility]) Vital Signs (Past 12 Hours) Vital Signs Temp Pulse Resp BP Pulse Ox O2 Del Method 08/06/22 10:30 43 L 20 168/78 H 100 08/06/22 10:15 25 H 93 08/06/22 10:15 155/89 H 08/06/22 10:00 61 17 100 08/06/22 09:50 61 17 100 08/06/22 09:47 164/69 H 08/06/22 09:47 47 L 18 94 08/06/22 09:45 119 H 18 08/06/22 09:44 36.6 C 51 L 22 164/69 H 100 Room Air Laboratory Results Abnormal lab results 08/06/22 08/06/22 08/06/22 Range/Units 09:51 09:51 09:51 RDW Std Deviation 48.8 H (36.4-46.3) fL RDW Coeff of Des 14.6 H (11.5-14.5) % BUN 29 H (6-23) mg/dl Creatinine 1.36 H (0.6-1.2) mg/dl BUN/Creatinine Ratio 21.3 H (10-20) Glucose 293 H (70-99(Fasting)) mg/dl POC Glucose 270 H (70-99) mg/dl AST 88 H (13-39) U/L ALT 115 H (7-52) U/L Alkaline Phosphatase 524 H (34-104) U/L Urine Appearance (Clear) Urine pH (4.5-7.5) Ur Specific [place] (1.000-1.030) Urine Glucose (UA) (Negative) Urine Blood (Negative) U Epithel Cells (Auto) (0-5) /lpf Urine Bacteria (Auto) (Negative) Amorphous Sediment (None Prsent) 08/06/22 Range/Units 10:07 RDW Std Deviation (36.4-46.3) fL RDW Coeff of Des (11.5-14.5) % BUN (6-23) mg/dl Creatinine (0.6-1.2) mg/dl BUN/Creatinine Ratio (10-20) Glucose (70-99(Fasting)) mg/dl POC Glucose (70-99) mg/dl AST (13-39) U/L ALT (7-52) U/L Alkaline Phosphatase (34-104) U/L Urine Appearance Cloudy A (Clear) Urine pH 8.0 H (4.5-7.5) Ur Specific [place] 1.041 H (1.000-1.030) Urine Glucose (UA) 2+ H (Negative) Urine Blood 1+ H (Negative) U Epithel Cells (Auto) 5-10 H (0-5) /lpf Urine Bacteria (Auto) 1+ H (Negative) Amorphous Sediment Present A (None Prsent) Diagnostic Findings Head CT 08/06/22 09:[address] OF THE BRAIN; CT ANGIOGRAM OF THE BRAIN; CT ANGIOGRAM OF THE NECK CLINICAL HISTORY: Change in mental status. Strokelike symptoms. COMPARISON STUDY: MRI of the brain dated 03/21/2019. TECHNIQUE: Unenhanced axial CT scan of the brain is performed. Subsequently, following the IV administration of 110 of Optiray 300, CT angiogram of the head and neck was performed from the aortic arch to the vertex. Images are reviewed in the axial, sagittal, and coronal planes. 3-D MIPS images are created and assessed. IV contrast was administered without complication. All measurements were calculated based on NASCET criteria. A dose lowering technique was utilized adhering to the principles of ALARA. CT DOSE: 1028.11 mGy.cm FINDINGS: Brain parenchyma: There is age-related involutional change noting mild subcortical and periventricular microangiopathic disease. There is no hemorrhage, mass effect, or evidence of acute territorial ischemia by CT criteria. There is no evidence of enhancing mass lesion on the angiogram phase images. The ventricles, sulci, and cisterns are prominent secondary to involutional change. Crum-white matter differentiation is preserved. No extra- axial fluid collection is seen. Thoracic aorta: Visualized portions of the thoracic aorta are normal in caliber. The aortic arch demonstrates 4-vessel variant anatomy. The left vertebral artery arises directly from the arch. Right carotid arterial system: The right common carotid artery is widely patent, as are the right internal and external carotid arteries. Calcified plaque is noted in the carotid bulb. Left carotid arterial system: The left common carotid artery is widely patent, as are the left internal and external carotid arteries. Calcified plaque is noted in the carotid bulb. Vertebral arteries: The vertebral arteries are widely patent bilaterally noting right-sided dominance. Subclavian arteries: Widely patent bilaterally. Intracranial vasculature: There is atherosclerotic calcification of the cavernous carotid arteries. The mi[place] of [place] is developmentally complete. The internal carotid arteries are patent at the skull base, as are the anterior and middle cerebral arteries bilaterally. The vertebrobasilar system and cinder crew worker ior cerebral arteries are widely patent. The right vertebral artery is dominant. There is no aneurysm, high-grade stenosis, or focal vessel cut off seen throughout the intracranial circulation. Jugular veins: Patent bilaterally. Dural sinuses: Patent. Lung apices: Partially visualized upper lobe lung parenchyma appears clear. Soft tissues: The visualized pharyngeal soft tissues are normal in appearance noting angiographic phase technique. The oropharyngeal airway appears widely patent. The salivary and thyroid glands are normal in appearance. No cervical lymphadenopathy is seen. Skeletal structures: The skeletal structures are osteopenic. The calvarium appears intact. The cervical spine is maintained noting multilevel spondylosis. No lytic or blastic lesion is seen. Orbits: The bony orbits are intact. Orbital contents are normal as visualized. Sinuses and mastoids: The paranasal sinuses are clear. The mastoid air cells are well pneumatized. Cerumen is noted in the right external auditory canal. IMPRESSION: 1. There is no hemorrhage, mass effect, or evidence of acute territorial ischemia by CT criteria. 2. Unremarkable CT angiogram of the brain. 3. Unremarkable CT angiogram of the neck. ACT 112: Negative or not required by law. Electronically signed by: Gavin Reyes M.D. 08/06/2022 10:03 AM Chest X-Ray 08/06/22 09:29 SINGLE VIEW CHEST CLINICAL HISTORY: Strokelike symptoms. FINDINGS: An AP, portable, upright chest radiograph is compared to study dated 04/28/2022 and correlated with chest CT dated 06/27/2022. The cardiomediastinal silhouette is unremarkable. The lungs and pleural spaces are clear. No pneumothorax is seen. The skeletal structures are osteopenic. The bony thorax is grossly intact. IMPRESSION: No active disease in the chest. ACT 112: Negative or not required by law. Electronically signed by: Gavin Reyes M.D. 08/06/2022 10:29 AM Head CTA 08/06/22 09:[address] OF THE BRAIN; CT ANGIOGRAM OF THE BRAIN; CT ANGIOGRAM OF THE NECK CLINICAL HISTORY: Change in mental status. Strokelike symptoms. COMPARISON STUDY: MRI of the brain dated 03/21/2019. TECHNIQUE: Unenhanced axial CT scan of the brain is performed. Subsequently, following the IV administration of 110 of Optiray 300, CT angiogram of the head and neck was performed from the aortic arch to the vertex. Images are reviewed in the axial, sagittal, and coronal planes. 3-D MIPS images are created and assessed. IV contrast was administered without complication. All measurements were calculated based on NASCET criteria. A dose lowering technique was utilized adhering to the principles of ALARA. CT DOSE: 1028.11 mGy.cm FINDINGS: Brain parenchyma: There is age-related involutional change noting mild subcortical and periventricular microangiopathic disease. There is no hemorrhage, mass effect, or evidence of acute territorial ischemia by CT criteria. There is no evidence of enhancing mass lesion on the angiogram phase images. The ventricles, sulci, and cisterns are prominent secondary to involutional change. Crum-white matter differentiation is preserved. No extra- axial fluid collection is seen. Thoracic aorta: Visualized portions of the thoracic aorta are normal in caliber. The aortic arch demonstrates 4-vessel variant anatomy. The left vertebral artery arises directly from the arch. Right carotid arterial system: The right common carotid artery is widely patent, as are the right internal and external carotid arteries. Calcified plaque is noted in the carotid bulb. Left carotid arterial system: The left common carotid artery is widely patent, as are the left internal and external carotid arteries. Calcified plaque is noted in the carotid bulb. Vertebral arteries: The vertebral arteries are widely patent bilaterally noting right-sided dominance. Subclavian arteries: Widely patent bilaterally. Intracranial vasculature: There is atherosclerotic calcification of the cavernous carotid arteries. The miami of [place] is developmentally complete. The internal carotid arteries are patent at the skull base, as are the anterior and middle cerebral arteries bilaterally. The vertebrobasilar system and posterior cerebral arteries are widely patent. The right vertebral artery is dominant. There is no aneurysm, high-grade stenosis, or focal vessel cut off seen throughout the intracranial circulation. Jugular veins: Patent bilaterally. Dural sinuses: Patent. Lung apices: Partially visualized upper lobe lung parenchyma appears clear. Soft tissues: The visualized pharyngeal soft tissues are normal in appearance noting angiographic phase technique. The oropharyngeal airway appears widely patent. The salivary and thyroid glands are normal in appearance. No cervical lymphadenopathy is seen. Skeletal structures: The skeletal structures are osteopenic. The calvarium appears intact. The cervical spine is maintained noting multilevel spondylosis. No lytic or blastic lesion is seen. Orbits: The bony orbits are intact. Orbital contents are normal as visualized. Sinuses and mastoids: The paranasal sinuses are clear. The mastoid air cells are well pneumatized. Cerumen is noted in the right external auditory canal. IMPRESSION: 1. There is no hemorrhage, mass effect, or evidence of acute territorial ischemia by CT criteria. 2. Unremarkable CT angiogram of the brain. 3. Unremarkable CT angiogram of the neck. ACT 112: Negative or not required by law. Electronically signed by: Gavin Reyes M.D. 08/06/2022 10:03 AM Neck CTA 08/06/22 09:[address] OF THE BRAIN; CT ANGIOGRAM OF THE BRAIN; CT ANGIOGRAM OF THE NECK CLINICAL HISTORY: Change in mental status. Strokelike symptoms. COMPARISON STUDY: MRI of the brain dated 03/21/2019. TECHNIQUE: Unenhanced axial CT scan of the brain is performed. Subsequently, following the IV administration of 110 of Optiray 300, CT angiogram of the head and neck was performed from the aortic arch to the vertex. Images are reviewed in the axial, sagittal, and coronal planes. 3-D MIPS images are created and assessed. IV contrast was administered without complication. All measurements were calculated based on NASCET criteria. A dose lowering technique was utilized adhering to the principles of ALARA. CT DOSE: 1028.11 mGy.cm FINDINGS: Brain parenchyma: There is age-related involutional change noting mild subcortical and periventricular microangiopathic disease. There is no hemorrhage, mass effect, or evidence of acute territorial ischemia by CT criteria. There is no evidence of enhancing mass lesion on the angiogram phase images. The ventricles, sulci, and cisterns are prominent secondary to involutional change. Crum-white matter differentiation is preserved. No extra- axial fluid collection is seen. Thoracic aorta: Visualized portions of the thoracic aorta are normal in caliber. The aortic arch demonstrates 4-vessel variant anatomy. The left vertebral artery arises directly from the arch. Right carotid arterial system: The right common carotid artery is widely patent, as are the right internal and external carotid arteries. Calcified plaque is noted in the carotid bulb. Left carotid arterial system: The left common carotid artery is widely patent, as are the left internal and external carotid arteries. Calcified plaque is noted in the carotid bulb. Vertebral arteries: The vertebral arteries are widely patent bilaterally noting right-sided dominance. Subclavian arteries: Widely patent bilaterally. Intracranial vasculature: There is atherosclerotic calcification of the cavernous carotid arteries. The mi[place] of [place] is developmentally complete. The internal carotid arteries are patent at the skull base, as are the anterior and middle cerebral arteries bilaterally. The vertebrobasilar system and posterior cerebral arteries are widely patent. The right vertebral artery is dominant. There is no aneurysm, high-grade stenosis, or focal vessel cut off seen throughout the intracranial circulation. Jugular veins: Patent bilaterally. Dural sinuses: Patent. Lung apices: Partially visualized upper lobe lung parenchyma appears clear. Soft tissues: The visualized pharyngeal soft tissues are normal in appearance noting angiographic phase technique. The oropharyngeal airway appears widely patent. The salivary and thyroid glands are normal in appearance. No cervical lymphadenopathy is seen. Skeletal structures: The skeletal structures are osteopenic. The calvarium appears intact. The cervical spine is maintained noting multilevel spondylosis. No lytic or blastic lesion is seen. Orbits: The bony orbits are intact. Orbital contents are normal as visualized. Sinuses and mastoids: The paranasal sinuses are clear. The mastoid air cells are well pneumatized. Cerumen is noted in the right external auditory canal. IMPRESSION: 1. There is no hemorrhage, mass effect, or evidence of acute territorial ischemia by CT criteria. 2. Unremarkable CT angiogram of the brain. 3. Unremarkable CT angiogram of the neck. ACT 112: Negative or not required by law. Electronically signed by: Gavin Reyes M.D. 08/06/2022 10:03 AM ECG Additional Comments: Poor data quality, interpretation may be adversely affected Undetermined rhythm Left bundle branch block Abnormal ECG When compared with ECG of 28-APR-2022 08:19, Current undetermined rhythm precludes rhythm comparison, needs review Left bundle branch block has replaced Incomplete right bundle branch block Code Status & VTE Plan Code Status Full code VTE Prophylaxis Plan VTE Prophylaxis will be ordered: Yes Supervising Physician Co-Signing Physician Notes Patient seen and examined at bedside. During face to face encounter obtained a history and physical examination. I reviewed above note and agree with it. Plan of care discussed with patient and APC Peno. Admit for stroke like symptoms. will monitor obtain brain MRI and consult neuro. PG Care Time/CCT Total # of Minutes Spent Total Time Spent with Patient: Total time spent is greater than 50% in coordination of care (as documented) at patient's floor/unit and/or counseling patient: Coding Level of Care Code Established Pt INT OBSERVATION CARE 70M LVL 3 Patient Type Established Medical Decision Making High Complexity Diagnoses Stroke-like symptoms R29.90 Elevated LFTs R79.89 YAIR (acute kidney injury) N17.9 Type 2 diabetes mellitus E11.9 Asthma J45.909 Hypertension I10 Hyperlipidemia E78.5 History of heart attack I25.2 GERD without esophagitis K21.9 Coronary artery disease I25.10 Mild cognitive impairment G31.84
[2022-08-06] MEDS ORDERED: SODIUM CHLORIDE 0.9% 1000ML 1,000 ML IV ONE (12:28)
--- NOTE | 2022-08-06 13:03 | Ultrasound Report ---
ULTRASOUND RIGHT UPPER QUADRANT ABDOMEN CLINICAL HISTORY: Elevated hepatic transaminases. COMPARISON STUDY: Abdominal CT dated 11/08/2020. TECHNIQUE: Real-time, grayscale, and color flow sonography of the right upper quadrant of the abdomen was performed. Images are reviewed in the transverse and longitudinal planes. FINDINGS: Liver: The liver is normal in size and echotexture. There is mild central intrahepatic biliary ductal dilatation. The main portal vein is patent. Gallbladder: The gallbladder is surgically absent. The common bile duct measures up to 0.9 cm in diam eter. Pancreas: Visualized portions of the pancreatic head and body are normal in appearance. Right kidney: Survey images of the right kidney demonstrate normal size and echotexture. There is no hydronephrosis. Ascites: None. IMPRESSION: Unremarkable sonographic examination of the right upper quadrant noting status post eber cystectomy. ACT 112: Negative or not required by law. Electronically signed by: Gavin Reyes M.D. 08/06/2022 1:00 PM
[2022-08-06] MEDS ORDERED: DEXTROSE 50% 50 ML SYRINGE IV PRN (13:44)
[2022-08-06] MEDS ORDERED: GLUCOSE 10 TAB/TUBE PO PRN (13:44)
[2022-08-06] MEDS ORDERED: MECLIZINE 12.5 MG TAB PO PRN (13:44)
[2022-08-06] MEDS ORDERED: ALBUTEROL HFA 8 GM INHALER INH PRN (13:44)
[2022-08-06] MEDS ORDERED: PHARMACIST DISCHARGE MED REC CONSULT PRN (13:44)
[2022-08-06] MEDS ORDERED: CARBOHYDRATES FOR HYPOGLYCEMIA PO PRN (13:44)
[2022-08-06] MEDS ORDERED: GLUCAGON FOR INJ 1 MG VIAL SQ PRN (13:44)
[2022-08-06] MEDS ORDERED: GLUCOSE 40% GEL 15 GM TUBE PO PRN (13:44)
--- NOTE | 2022-08-06 14:03 | Communication Note ---
Date of Service: August 06, 2022 Was alerted by nursing staff that the patient's BP is currently 206/75. The patient is currently asymptomatic and fells "great". Patient is being prepared for MRI for the near future, will wait to treat hypertension until ischemic disease is ruled out to avoid dropping blood pressure and reducing brain perfusion. Will continue to monitor closely
[2022-08-06 14:51] LABS: Lyme Ab IgG w/WB Rflx Negative (Negative); Lyme Ab IgM w/WB Rflx Negative (Negative)
--- NOTE | 2022-08-06 15:13 | Magnetic Resonance Report ---
MRI OF THE BRAIN WITHOUT IV CONTRAST CLINICAL HISTORY: Strokelike symptoms COMPARISON STUDY: CT of the brain dated 08/06/2022. MRI of the brain dated 03/21/2019. TECHNIQUE: MRI of the brain was performed utilizing various T1 and T2-weighted sequences in the axial , sagittal, and coronal planes. IV contrast was not administered for this examination. FINDINGS: Brain parenchyma: There is age-related involutional change noting mild to moderate subcortical and pe riventricular microangiopathic disease. There is no hemorrhage or mass effect. There is no restricted diffusion to suggest acute ischemia. Crum-white matter differentiation is preserved. No extra-axial fluid collection is seen. The cerebellar tonsils are normal in configuration. Ventricles, sulci, and cisterns: Prominent secondary to involutional change. Pituitary and sella: Unremarkable. Intracranial vasculature: Normal flow voids are maintained at the skull base. Orbits: The bony orbits are grossly intact. Orbital contents are normal in appearance. Sinuses and mastoids: There is trace left mastoid effusion. The right mastoid air cells and paranasal sinuses are clear. Calvarium: Unremarkable. Cervical cord: Partially visualized cervical spinal cord is normal in morphology and signal intensity . IMPRESSION: No acute intracranial abnormality. ACT 112: Negative or not required by law. Electronically signed by: Gavin Reyes M.D. 08/06/2022 3:11 PM
[2022-08-06] MEDS: INSULIN ASPART PER UNIT SC SCH ×3 (15:17→20:50)
[2022-08-06] MEDS: LANTUS PER UNIT CHARGE SQ SCH ×2 (15:50→21:03)
[2022-08-06] MEDS: HEPARIN SOD 5,000 UNIT/0.5 ML VIAL SQ SCH ×2 (15:50→21:01)
[2022-08-06] MEDS: FAMOTIDINE 40 MG TABLET PO SCH (21:00)
--- NOTE | 2022-08-06 21:19 | Electrocardiogram Report ---
Test Reason : Blood Pressure : / mmHG Vent. Rate : 050 BPM Atrial Rate : 049 BPM P-R Int : 144 ms QRS Dur : 130 ms QT Int : 492 ms P-R-T Axes : 074 -26 140 degrees QTc Int : 448 ms Poor data quality, interpretation may be adversely affected Sinus bradycardia Left bundle branch block Abnormal ECG When compared with ECG of 28-APR-2022 08:19, Left bundle branch block has replaced Incomplete right bundle branch block Confirmed by Pramod Amaral ([id number]) on 08/06/2022 9:19:28 PM Referred By: REFERRED SELF Confirmed By:Pramod Amaral
[2022-08-07] MEDS: HEPARIN SOD 5,000 UNIT/0.5 ML VIAL SQ SCH ×2 (05:23→14:41)
[2022-08-07 06:24] LABS: Hematocrit (blood only) 37.8 % (34.1-44.9); Hemoglobin 12.7 g/dl (12.0-16.0); Mean Corpuscular Hemoglobin 30.2 pg (25.0-34.0); Mean Corpuscular Hgb Conc 33.6 g/dL (32.0-36.0); Mean Platelet Volume 9.7 fL (9.4-12.3); Platelet Count 188 K/uL (130-400); RDW Coefficient of Variation 14.6 % (11.5-14.5); RDW Standard Deviation 48.5 fL (36.4-46.3); White Blood Count 5.72 K/ul (4.8-10.8)
[2022-08-07 07:43] LABS: Albumin Globulin Ratio 1.4 (0.9-2); Albumin Level 3.9 gm/dl (3.4-5.0); BUN Creatinine Ratio 17.9 (10-20); Bilirubin,Total 0.7 mg/dl (0.2-1.0); Calcium 9.2 mg/dl (8.5-10.1); Chol HDL Ratio 1.8 (0-5); Creatinine Clr Calc Pharmacy 27.3 ml/min; Est GFR (African American) 47.3 ml/min; Est GFR (Non-African American) 40.8 ml/min; Globulin 2.7 gm/dl (2.5-4.0); Potassium 3.9 mmol/L (3.5-5.1); Total Protein 6.6 gm/dl (6.0-8.3)
[2022-08-07 08:21] LABS: Estimated Average Glucose 169 mg/dl; Hemoglobin A1C 7.5 % (4.5-5.6)
[2022-08-07] MEDS: FAMOTIDINE 40 MG TABLET PO SCH (08:36)
[2022-08-07] MEDS: INSULIN ASPART PER UNIT SC SCH ×3 (08:38→16:58)
[2022-08-07] MEDS ORDERED: ASPIRIN 81 MG ECTAB PO SCH (09:00)
[2022-08-07] MEDS ORDERED: ISOSORBIDE DINITRATE 10 MG TAB PO SCH (09:00)
[2022-08-07] MEDS ORDERED: amLODIPine BESYLATE 5 MG TAB PO SCH (09:00)
[2022-08-07] MEDS ORDERED: CHOLECALCIFEROL 1,000 UNITS 25 MCG TAB PO SCH (09:00)
[2022-08-07] MEDS ORDERED: CLOPIDOGREL BISULFATE 75 MG TAB PO SCH (09:00)
[2022-08-07] MEDS ORDERED: FLUTICASONE FUROATE 100MCG 14 PUFFS/INHALER INH SCH (09:00)
[2022-08-07] MEDS ORDERED: MAGNESIUM OXIDE 400 MG TAB PO SCH (09:00)
[2022-08-07] MEDS ORDERED: DONEPEZIL HCL 10 MG TAB PO SCH (09:00)
[2022-08-07] MEDS ORDERED: CYANOCOBALAMIN (B-12) 500 MCG TABLET PO SCH (09:00)
[2022-08-07] MEDS: LANTUS PER UNIT CHARGE SQ SCH (09:17)
[2022-08-07] MEDS ORDERED: CELECOXIB 100 MG CAP PO ONE (13:00)
[2022-08-07] MEDS ORDERED: SODIUM CHLORIDE 0.9% 1000ML 1,000 ML IV SCH (14:15)
--- NOTE | 2022-08-07 14:24 | Consultation Report ---
DATE OF SERVICE: 08/07/2022 REASON FOR CONSULTATION: Episode of altered consciousness. HISTORY OF PRESENT ILLNESS: The patient is an 82-year-old right-handed female with a history of hypertension, borderline diabetes, hyperlipidemia, coronary artery disease, asthma and mild cognitive impairment, for which she is on Aricept. By report, the patient complained of some modest frontal headache. She was looking up to put something in a cabinet, felt nonspecifically unwell, perhaps had some tingling in her forehead and then fell down. The fall was not witnessed. Her significant other heard her fall and when he found her in the kitchen. There was no noted seizure activity. She was diaphoretic. The pt was confused for several minutes after the fall as well as tremulous.No incontinence, tongue biting or injury The patient's heart rate reportedly fell to the 30s en route and she was hypertensive. Her blood sugar was noncontributory. . Upon awakening and alerting, the patient had no complaints. They do report that she has episodically felt dizzy if she tilts her head up quickly. On the morning of admission, her blood sugar was normal and she had eaten breakfast. She may have taken a cold medicine, which the family member believed to be Coricidin, but is unsure. Apparently, the Emergency Room or EMT staff felt that there was facial droop and slurred speech, but the side of the facial droop is unclear The patient has chronically taken aspirin and Plavix since an UT and a stent placement. None of her medicines are new or changed in dose. She has otherwise been well. She has not had any weight loss, fevers, chills, sweats, or infectious symptoms. ALLERGIES: PENICILLIN, OMEPRAZOLE, PANTOPRAZOLE, RABEPRAZOLE, RANEXA, PEANUT. MEDICATIONS: Home meds are multiple vitamin, vitamin D, albuterol, famotidine, Arnuity Ellipta, lysine, Butler-3, meclizine p.r.n., Isordil, amlodipine, Plavix, ezetimibe, lisinopril, magnesium, montelukast, Aricept 10, aspirin, atorvastatin and B12. PAST MEDICAL HISTORY: As above. Pulmonary nodule, deafness in right ear. PAST SURGICAL HISTORY: Cystocele with rectocele, coronary stent in 06/2017, cholecystectomy, total hysterectomy for dysfunctional uterine bleeding and cardiac catheterization. FAMILY HISTORY: Alcoholism, coronary artery disease, hypertension, myocardial infarction, dementia. SOCIAL HISTORY: Former smoker, does not drink alcohol. Lives with significant other. DATA: Labs were notable for normal white count and platelet count, PT and PTT. BUN, creatinine 29/1.36. Normal sodium, potassium. Blood sugar point of care was 270 and subsequently was 121 at our facility. Hemoglobin A1c was 7.5. AST 88, ALT 115, alkaline phosphatase 524, LDL 51. Urinalysis; cloudy, 2+ glucose, 1+ blood, 5-10 epithelial cells, bacteria 1+, sediment present. Echocardiogram, bubble study negative for shunt. LV grossly normal. Mild concentric LVH, EF 50%-55%. Left ventricular systolic function is borderline reduced. No thrombus. Left atrial size is normal. Bubble study negative for shunt. Great vessels unremarkable. Electrocardiogram, sinus bradycardia, left bundle-branch block, abnormal EKG. Ventricular rate was 50. MRI of the brain, which I reviewed noncontrast showed chronic vascular changes. No acute abnormality. CTA of head and neck, which I have reviewed, shows chronic vascular changes. CTA of head and neck noncontributory, i.e., no large vessel stenosis or aneurysm. PHYSICAL EXAMINATION: The patient is awake and alert. Speech and language are normal. Affect appropriate. There are no carotid bruits, no heart murmurs. Heart is regular rate and rhythm. Pupils are equal, round and reactive to light. The optic nerves are grossly normal. There are normal jack, motility, facial sensation and facial symmetry. There is full strength, no drift. Normal rapid alternating movements. Symmetric reflexes, downgoing toes. Itgpyu-dh-pesd and tcap-pd-zgzc are normal. Sensation is intact to light touch. No calf swelling or tenderness is noted. Posterior tibial pulses are intact. IMPRESSION: Episode of loss of consciousness. Query bradycardia with hypoperfusion, query transient ischemic attack, query hypertensive emergency, seizure PLAN: Continue antiplatelet therapy with aspirin and Plavix. Recommend that VerifyNow be performed both for aspirin and Plavix as an outpatient. The patient already follows with [facility] and she can follow up with them. VerifyNow is available at [facility]. Continue risk factor modification with control of lipids. Recommend discontinuing Aricept as it can cause bradycardia. Recommend a Zio patch as an outpatient and recommend EEG. We will follow with you. Job ID: [id number] MTDD
[2022-08-07] MEDS ORDERED: STROKE PATIENT DISCHARGE STA (14:43)
--- NOTE | 2022-08-07 17:28 | Electroencephalogram ---
EEG Procedure Note Date of Service August 07, 2022 Start / End Times Start Time: 07:37 End Time: 0757 Referring Physician Edmond Rodrigues M.D. History A 82 year old female with stroke like symptoms. EEG performed for evaluation of epileptiform activity. Home Medication List Medication Instructions Recorded Confirmed Type multivitamin 1 tab PO DAILY #30 tabs 04/24/19 08/06/22 Rx cholecalciferol (vitamin D3) 50 2,000 units PO DAILY #90 tabs 10/27/19 08/06/22 Rx mcg (2,000 unit) tablet albuterol sulfate 90 mcg/actuation 2 puff inhalation Q6H PRN 01/09/22 08/06/22 Rx aerosol inhaler (Ventolin HFA) shortness of breath or wheezing #54 grams famotidine 40 mg tablet 40 mg PO BID #180 tabs 01/09/22 08/06/22 Rx fluticasone furoate 100 1 inh inhalation DAILY #30 ea 01/09/22 08/06/22 Rx mcg/actuation blister powder for inhalation (Arnuity Ellipta) lysine 1,000 mg tablet 1,000 mg PO DAILY #90 tabs 01/09/22 08/06/22 Rx omega-3 acid ethyl esters 1 gram 1 cap PO DAILY #30 caps 01/09/22 08/06/22 Rx capsule blood sugar diagnostic #100 ea 03/09/22 07/24/22 Rx lancets 33 gauge (OneTouch Delica #100 ea 03/09/22 07/24/22 Rx Lancets) meclizine 12.5 mg tablet 12.5 mg PO TID PRN Dizziness 03/14/22 08/06/22 History isosorbide dinitrate 30 mg tablet 30 mg PO DAILY #30 tabs 05/19/22 08/06/22 Rx amlodipine 2.5 mg tablet 2.5 mg PO DAILY #90 tabs 07/11/22 08/06/22 Rx clopidogrel 75 mg tablet 75 mg PO DAILY #90 tabs 07/11/22 08/06/22 Rx lisinopril 10 mg tablet 10 mg PO DAILY #90 tabs 07/11/22 08/06/22 Rx magnesium oxide 400 mg PO DAILY #90 tabs 07/11/22 08/06/22 Rx montelukast 10 mg tablet 10 mg PO QPM #90 tabs 07/11/22 08/06/22 Rx Wrist splint cock up #1 ea 07/24/22 07/24/22 Rx aspirin 81 mg tablet,delayed 81 mg PO DAILY 08/06/22 08/06/22 History release cyanocobalamin (vitamin B-12) 1,000 mcg PO QAM 08/06/22 08/06/22 History 1,000 mcg tablet (Vitamin B-12) Inpatient Medication List Amlodipine Besylate (Amlodipine Besylate 5 Mg Tab) 2.5 mg PO DAILY BREEZY Stop: 09/06/22 08:59 Last Admin: 08/07/22 08:33 Dose: 2.5 mg Documented By: RAMESH Aspirin (Aspirin 81 Mg Ectab) 81 mg PO DAILY BREEZY Stop: 09/06/22 08:59 Last Admin: 08/07/22 08:33 Dose: 81 mg Documented By: RAMESH Clopidogrel Bisulfate (Clopidogrel Bisulfate 75 Mg Tab) 75 mg PO DAILY BREEZY Stop: 09/06/22 08:59 Last Admin: 08/07/22 08:33 Dose: 75 mg Documented By: RAMESH Cyanocobalamin (Cyanocobalamin (B-12) 500 Mcg Tablet) 1,000 mcg PO QAM BREEZY Stop: 09/06/22 08:59 Last Admin: 08/07/22 09:14 Dose: 1,000 mcg Documented By: RAMESH Donepezil HCl (Donepezil Hcl 10 Mg Tab) 10 mg PO DAILY BREEZY Stop: 09/06/22 08:59 Last Admin: 08/07/22 08:33 Dose: 10 mg Documented By: RAMESH Famotidine (Famotidine 40 Mg Tablet) 40 mg PO BID BREEZY Stop: 09/05/22 20:59 Last Admin: 08/07/22 08:36 Dose: 40 mg Documented By: Admin: 08/06/22 21:00 Dose: 40 mg Documented By: BERNADINE Fluticasone Furoate (Fluticasone Furoate 100mcg 14 Puffs/Inhaler) 1 puffs INH DAILY BREEZY Stop: 09/06/22 08:59 Last Admin: 08/07/22 08:32 Dose: 1 puffs Documented By: RAMESH Heparin Sodium (Porcine) (Heparin Sod 5,000 Unit/0.5 Ml Vial) 5,000 units SQ Q8 BREEZY Stop: 09/05/22 13:59 Last Admin: 08/07/22 14:41 Dose: 5,000 units Documented By: Admin: 08/07/22 05:23 Dose: 5,000 units Documented By: Admin: 08/06/22 21:01 Dose: 5,000 units Documented By: Admin: 08/06/22 15:50 Dose: 5,000 units Documented By: BUSHRA Sodium Chloride (Nss 1000ml) 1,000 mls @ 125 mls/hr IV .Q8H BREEZY Stop: 08/07/22 22:14 Last Admin: 08/07/22 14:46 Dose: 125 mls/hr Documented By: RAMESH Insulin Aspart (Insulin Aspart Per Unit) 0 units SC ACHS BREEZY Stop: 09/05/22 13:43 Last Admin: 08/07/22 16:58 Dose: Not Given Documented By: Admin: 08/07/22 12:08 Dose: 2 units Documented By: RAMESH Co-signed By: BERTA Admin: 08/07/22 08:38 Dose: Not Given Documented By: Admin: 08/06/22 20:50 Dose: Not Given Documented By: Admin: 08/06/22 17:48 Dose: 2 units Documented By: BUSHRA Co-signed By: CC Admin: 08/06/22 15:17 Dose: Not Given Documented By: BUSHRA Insulin Glargine (Lantus Per Unit Charge) 5 units SQ BID BREEZY Stop: 09/05/22 13:43 Last Admin: 08/07/22 09:17 Dose: 5 units Documented By: RAMESH Co-signed By: BERTA Admin: 08/06/22 21:03 Dose: 5 units Documented By: BERNADINE Co-signed By: DM Admin: 08/06/22 15:50 Dose: 5 units Documented By: BUSHRA Co-signed By: SML Isosorbide Dinitrate (Isosorbide Dinitrate 10 Mg Tab) 30 mg PO DAILY BREEZY Stop: 09/06/22 08:59 Last Admin: 08/07/22 08:32 Dose: 30 mg Documented By: RAMESH Magnesium Oxide (Magnesium Oxide 400 Mg Tab) 400 mg PO DAILY BREEZY Stop: 09/06/22 08:59 Last Admin: 08/07/22 09:14 Dose: 400 mg Documented By: RAMESH Vitamin D (Cholecalciferol 1,000 Units 25 Mcg Tab) 2,000 units PO DAILY BREEZY Stop: 09/06/22 08:59 Last Admin: 08/07/22 09:14 Dose: 2,000 units Documented By: RAMESH Discontinued Medications Acetaminophen (Acetaminophen 500 Mg Tab) 500 mg PO NOW STA Stop: 08/06/22 10:54 Last Admin: 08/06/22 11:19 Dose: 500 mg Documented By: ELDA Celecoxib (Celecoxib 100 Mg Cap) 100 mg PO ONE ONE Stop: 08/07/22 13:01 Last Admin: 08/07/22 13:26 Dose: 100 mg Documented By: RAMESH Sodium Chloride (Nss 1000ml) 1,000 mls @ 999 mls/hr IV .Q1H1M ONE Stop: 08/06/22 13:28 Last Infusion: 08/06/22 16:28 Dose: 0 mls/hr Documented By: Admin: 08/06/22 15:11 Dose: 999 mls/hr Documented By: BUSHRA Ioversol (Optiray 300 500ml) 110 ml IV ONCE ONE Stop: 08/06/22 09:39 Last Admin: 08/06/22 09:40 Dose: 110 ml Documented By: CHANTELL Miscellaneous (Rapid Sequence Induction Bag) Confirm Administered Dose 1 each .ROUTE .STK-MED ONE Stop: 08/06/22 09:23 Last Admin: 08/06/22 10:10 Dose: Not Given Documented By: MICHAEL Description This is a 21 electrode EEG with a single channel dedicated to limited EKG. The electrodes were placed in accordance with the International 10-20 system. REPORT: At the onset of the EEG the patient is awake. The background is sym metric and well organized. The posterior dominant rhythm is 9 hz with a normal anterior to posterior gradient. Drowsiness is characterized by increased theta activity and reduced blink rate. No stage II sleep transients are seen. Interpretation IMPRESSION: This is a normal awake and drowsy EEG. There is no evidence of focal slowing or epileptiform activity.
[2022-08-09 14:06] LABS: HBSAG NON-REACTIVE (NON-REACTIVE); Hepatitis A Antibody IgM NON-REACTIVE (NON-REACTIVE); Hepatitis B Core Antibody IgM NON-REACTIVE (NON-REACTIVE)
[2022-08-09 19:50] LABS: Babesia microti DNA Not Detected (Not Detected)
--- NOTE | 2022-08-11 22:48 | Discharge Summary ---
Date of Service August 07, 2022 Admission HPI Per Admitting Provider Sherrie is an 82 year old female with a PMH significant for CAD, previous TN in 2017, HTN, Hyperlipidemia, asthma, DM II, and mild cognitive impairment who presented to the [facility] ED on 08/06/22 due to stroke-like symptoms. Per chart review, the patient reportedly complained of a severe headache this am to her family, she then had an episode of AMS with slurred speech. Her family reported that she was dizzy and then fell, they do not think that she hit her head. Per EMS, the patient was noted to have slurred speech and right facial droop, they said these symptoms began to improve as they arrived to the ED. The patient's HR reportedly fell to the 30's in route and she was hypertensive. Per the ED staff, by the time they evaluated the patient after her CT her facial drop and slurred speech had resolved. In the Ed the patient was noted to be afebrile, hypertensive at 168/78, and bradycardic with HR in the 40's. Labs were significant for a creatinine of 1.36 (baseline appears to be around 1.0), glucose of 293, AST of 88, ALT of 115, alk phos of 524. CT of the head, CTA of the head/neck, and CXR were all negative for acute changes. The patient was recommended for observation for continued workup of her stroke symptoms and elevated LFTs. At the time of the exam the patient was sitting up in bed in no acute distress with her family and fiance sitting bedside. The patient lives with her Fiandrew and his daughter who also help to provide history of the episode this am. They state that she has been doing well and in her normal state of health. She has baseline issues with her short-term memory but no other neurologic or cognitive problems. She and her fiance have been active lately chopping and stacking wood in preparation for the winter. This morning the patient woke up and felt like her normal self. She had a runny nose so she took a "red pill" of which her Fiance's daughter believes it was a generic Coricidin but will double check when she goes back home. The patient checked her blood sugar prior to breakfast and it was 147. After breakfast she was in the kitchen when she developed a tingling/numbness on her forehead. She then developed a severe headache in the same distribution, felt dizzy and fell to the ground. She thinks she mad have lost consciousness for a few seconds but then quickly regained consciousness. Her fiance and his daughter found her on the ground and deny seeing any signs of seizure like activity; she did not lose control of her bowels/bladder but they state that she was confused for 5-10 minutes after the event. Her family states that they did not see any facial drooping prior to EMS arriving. She has been on Aspirin (81 mg daily), plavix (75 mg daily), and atorvastatin (40 mg daily) since her previous TN and stent placement in 2006. She has not started any other new medications recently, and stopped drinking alcohol and smoking after her TN in 2006. Her baseline mental status is alert and oriented to person, place, month, year, but she does not follow politics and does not remember who the current president is. She and her family are in agreement about her being admitted for further workup of her neurologic symptoms and elevated LFTs. She denies a history of cirrhosis or problems with her liver, previous Lyme infection, and hepatitis. She has not noticed any recent tick bites or rashes and she does have a dog at home. She denies any recent fevers, chills, chest pain, SOB, heart palpitations, Principal Diagnosis stroke like symptoms, possible bradycardia causing hypoperfusion, vs TIA Discharge Exam General: In no acute distress, stated age, well-nourished, good hygiene HEENT: Normocephalic, atraumatic, no scleral icterus, pupils around round, symmetrical, and reactive to light, moist mucus membranes, uvula midline with symmetrical palate, trachea midline, no thyromegaly Chest/Pulm: No respiratory distress, symmetrical chest expansion, clear breath sounds throughout Cardiac: bradycardic rate, regular rhythm,, no murmurs noted Abdomen: Negative for ascites and bruising, normoactive bowel sounds, soft, non-tender to palpation throughout Musculoskeletal: Symmetrical and without signs of acute trauma, upper and lower extremities with full ROM, no atrophy, spasticity, or flaccidity Extremities: Radial, dorsalis pedis, and posterior tibial pulses are intact and symmetrical, no edema noted in the BL LE's Skin: Warm, dry, no rashes , lesions, or scars noted Neuro: Alert and oriented to person, place, month, year,, no focal defects, CN II-XII tested and intact, finger to nose test negative, no tremors noted Psych: No acute distress, calm and cooperative during the exam Discharge Data Allergies Allergy/AdvReac Type Severity Reaction Status Date / Time Penicillins Allergy Unknown hives Verified 08/11/22 08:10 omeprazole Allergy Verified 08/11/22 08:10 pantoprazole Allergy Verified 08/11/22 08:10 rabeprazole Allergy Verified 08/11/22 08:10 ranolazine [From Ranexa] Allergy Verified 08/11/22 08:10 peanut AdvReac Intermediate GI Symptoms Unverified 08/11/22 08:10 Consultations 08/06/22 11:00 ED Decision to Admit Stat 08/06/22 13:44 Consult Neurology Routine Ordered Studies 08/06/22 09:13 CT head/brain wo con Stat 08/06/22 09:29 CT angio head w con Stat CT angio neck with con Stat 08/06/22 11:58 US abdomen [US liver] Routine 08/06/22 13:44 MR brain wo con Routine Hospital Course (1) Stroke-like symptoms: On admission: -Admit to med tele -Patient is currently afebrile, hemodynamically stable, stable on room air, and back to her neurologic baseline -History is concerning for possible TIA, but she potentially could have had Hypertensive emergency with the history of her hypertension with symptoms as well. Unsure of the pill she took this am prior to her symptoms, but if it was for a runny nose it could have possibly been Sudafed, causing hypertension. 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 ECG from today, this is new from prior ECG which showed a RBBB, continue to monitor on tele for now AT discharge: appreciate input from Neuro Episode of loss of consciousness. Query bradycardia with hypoperfusion, query transient ischemic attack, query hypertensive emergency, seizure PLAN: Continue antiplatelet therapy with aspirin and Plavix. Recommend that VerifyNow be performed both for aspirin and Plavix as an outpatient. The patient already follows with [facility] and she can follow up with them. VerifyNow is available at [facility]. Continue risk factor modification with control of lipids. Recommend discontinuing Aricept as it can cause bradycardia. Recommend a Zio patch as an outpatient and recommend EEG.(EEG was negative) Statins on hold due to elevated AST/ALT (2) Elevated LFTs: -AST, ALT, and Alk phos all elevated today, total bili WNL -Patient does not have a history of liver disease, lyme, hepatitis, and drug use, stopped drinking in 2006 when she had her TN -Has been doing alot of yard work recently and also has a dog -Will order tick born panel, hepatitis panel, and US of the liver to start her workup -Hold Statin and Zetia for now with elevated LFTs -will defer to PCP when to restart (3) YAIR (acute kidney injury): -Cr today noted to be 1.39, baseline appears to be around 1.0 -Could be prerenal as she has no urinary issues -Will give a 1L NSS bolus now and trend renal function (4) Type 2 diabetes mellitus: -Currently trying to control blood sugar with diet and exercise -resume home meds at discharge. (5) Asthma: -Continue as needed albuterol (6) Hypertension: -Continue amlodipine but hold lisinopril for now with YAIR, restart lisinopril when YAIR has resolved (7) Hyperlipidemia: -Hold statin and Zetia for now with elevated LFTs, resume when they reach baseline (8) History of heart attack: -Continue aspirin, plavix, and Isosorbide dinitrate (9) GERD without esophagitis: -Continue famotidine (10) Coronary artery disease: -See hx of heart attack and stroke symptoms (11) Mild cognitive impairment: -Currently at cognitive baseline -Continue Donepizil Plan The patient was discussed with Dr. Rodrigues at the time of admission Total Time Total Time Spent Total Time Spent (In Minutes): 35 Discharge Plan Discharge Items Patient Disposition: Home - Home Health Services Reason For Visit: stroke symptoms Discharge Diagnosis: stroke symptoms Activity: Resume your previous activity Non-emergency contact: Primary Care Provider Call non-emergency contact if: you have any medication questions Follow-up/Referrals: Kaylen Leonardo DO [Primary Care Provider] - 08/16/22 10:20 am Diet: Carb Consistent or DM2 and Heart Healthy Addtl Attending Provider Instructions: Concern that your episode of passing out was related to low heart rate. Will hold off the aricept. will recommend that your primary care order a heart monitor as an outpatient. Also recommend they repeat testing of your liver tests in 1 week. Pending Studies at Discharge: No Stand-Alone Forms: Medications to Prevent Stroke, My [facility], Smoking Cessation Medications and DC Order Prescriptions: Continued albuterol sulfate [Ventolin HFA] 90 mcg/actuation HFA aerosol inhaler 2 puff INH Q6H PRN (Reason: shortness of breath or wheezing) Qty: 54 0RF famotidine 40 mg tablet 40 mg PO BID Qty: 180 3RF Arnuity Ellipta 100 mcg/actuation blister with device 1 inh INH DAILY Qty: 30 5RF omega-3 acid ethyl esters 1 gram capsule 1 cap PO DAILY Qty: 30 5RF (DME) blood sugar diagnostic Strip See Rx Instructions .Route Qty: 100 5RF Rx Instructions: Onetouch Ultra Blue Test Strips / test once daily E11.9 (DME) lancets [OneTouch Delica Lancets] 33 gauge misc See Rx Instructions .ROUTE .MEDSUPPLY Qty: 100 5RF Rx Instructions: Test once daily. DX: E11.9 One Touch Verio Reflect isosorbide dinitrate 30 mg tablet 30 mg PO DAILY Qty: 30 5RF Rx Instructions: allow nitrate-free interval of 12-14 hrs per 24-hr period lisinopril 10 mg tablet 10 mg PO DAILY Qty: 90 1RF amlodipine 2.5 mg tablet 2.5 mg PO DAILY Qty: 90 1RF montelukast 10 mg tablet 10 mg PO QPM Qty: 90 1RF clopidogrel 75 mg tablet 75 mg PO DAILY Qty: 90 1RF magnesium oxide 400 mg magnesium tablet 400 mg PO DAILY Qty: 90 1RF multivitamin tablet 1 tab PO DAILY Qty: 30 5RF cholecalciferol (vitamin D3) 2,000 unit tablet 2,000 units PO DAILY Qty: 90 3RF meclizine 12.5 mg tablet 12.5 mg PO TID PRN (Reason: Dizziness) (DME) Wrist splint cock up See Rx Instructions .Route .MEDSUPPLY Qty: 1 0RF Rx Instructions: As directed cyanocobalamin (vitamin B-12) [Vitamin B-12] 1,000 mcg tablet 1,000 mcg PO QAM aspirin 81 mg tablet,delayed release (DR/EC) 81 mg PO DAILY Discontinued ezetimibe 10 mg tablet 10 mg PO DAILY Qty: 90 1RF donepezil 10 mg tablet 10 mg PO DAILY 30 Days Qty: 30 3RF atorvastatin 40 mg tablet 40 mg PO HS No Action metformin 500 mg tablet extended release 24 hr 500 mg PO DAILY Qty: 30 2RF lysine 1,000 mg tablet 1,000 mg PO DAILY Qty: 90 1RF Discharge Orders: Discharge Order (Routine); Ordered 08/07/22 Ordered By: Edmond Peace/Other Patient Handouts: Managing Type 2 Diabetes, TIA Dc, Risk Factors for Stroke Admission Data Admit Date/Time: 08/06/22 11:33 Attending Provider: Edmond Rodrigues Admit Provider: Stevenson Rees Primary Care Provider: Kaylen Leonardo Other Providers: Edmond Rodrigues ; Fly Cooper [facility] ; Kory Dumont ; Dk Fowler ; Geri Lopez ; Jennie Medina ; Olayinka Naylor ; Jennie Olson ; Jeff Bentley ; Tona Khoury ; Max Amato ; Terri Phillips ; Augustina Tyler Other Interventions: Discharge Summary Assessment (RN) Last Done: 08/07/22 16:59 Coding Level of Care Code 86841 OBS Care - Discharge Diagnoses Stroke-like symptoms R29.90 Elevated LFTs R79.89 YAIR (acute kidney injury) N17.9 Type 2 diabetes mellitus E11.9 Asthma J45.909 Hypertension I10 Hyperlipidemia E78.5 History of heart attack I25.2 GERD without esophagitis K21.9 Coronary artery disease I25.10 Mild cognitive impairment G31.84
== END 2022-08-07 17:52 | disposition home health service (06) ==
LOC: 2N 09:27 → ED 09:27 → 2N 13:04

== ENCOUNTER 2024-08-19 18:08 | Observation (INO) ==
--- NOTE | 2024-08-19 18:38 | Emergency Department Note ---
Impression & Plan Abdominal pain Admission ED Provider Note HPI: History obtained from patient and family at the bedside. The patient is a 84-year-old female who presents the emergency department with chief complaint of epigastric abdominal discomfort and back pain that has been ongoing for the past 2 to 3 days. Patient states that she had a CT scan done today in the outpatient setting and was advised to come to the emergency department to be assessed as the CT scan showed a "bowel in front of my liver". Patient's assist with history as the patient does have some memory issues, he states that the patient had an episode of pain Sunday that lasted less than a minute but was very severe, it was also right-sided. CT imaging was done today and following discussion by the ordering provider with on-call general surgery, was advised that the patient come in to be assessed to the emergency room. On arrival here to the ED the patient states she is not currently having any pain, she is otherwise hemodynamically stable. ROS: - Per HPI Differential Diagnosis: Small bowel obstruction, acute cholecystitis, choledocholithiasis, diverticulitis flare, perforated viscus, ischemic colitis, mesenteric ischemia, amongst other potential pathologies. *Outpatient medications and allergy history reviewed. PE: General: Alert HEENT: Normocephalic, trachea midline Eyes: Extraocular eye movement is intact, no scleral erythema Pulmonary: Clear to auscultation bilaterally, no wheezing Cardio: Regular rate and rhythm GI: Abdomen is soft to palpation : No suprapubic tenderness MSK: No evidence of trauma or malformation of the extremities, no edema Skin: No evidence of rash Neuro: Alert, no focal deficits Psychiatric: Cooperative INDEPENDENT INTERPRETATIONS: secured entrance monitor: (As interpreted by myself): - An order was placed for continuous cardiac monitoring - Patient was noted to be in sinus rhythm with a rate of 58 EKG: (As interpreted by myself): Rate: 75 Rhythm: Sinus rhythm Intervals: QRS 128 ms, otherwise within normal limits ST changes: No ST elevation Time: 1829 Interventions provided in ED: -IV fluid bolus Medical Decision Making: IV was established and lab work obtained, patient was placed on alarm security or surveillance monitor. Lab work shows no leukocytosis, hemoglobin is normal, platelet count is normal, CMP does not show any evidence of any critical findings, creatinine is mildly elevated at 1.24 which appears to be near the patient's baseline. There is no transaminitis, bilirubin is normal, troponin is negative x 1. EKG per my interpretation does not show any evidence of any acute ischemic changes. General surgery was consulted, patient was evaluated by Max Jorge PA-C. Case was staffed with Dr. Calix. Given the patient's intermittent pain with finding on CT imaging today of the section of colon that was anterior to the liver, recommendation was made for observation admission to see how the patient does in regards to her pain. Patient's family requested admission and they are in agreement to this plan. Hospitalist service was consulted for admission, case was discussed with Dr. Reis. Patient was placed for admission in stable condition. Consultants/Discussions held with other healthcare providers: -Hospitalist, Dr. Reis -General Surgery, Dr. Calix Disposition discussion held by myself with: -Patient and patient's at the bedside Diagnosis: 1. Abdominal pain, acute 2. Abnormal outpatient CT scan of the abdomen/pelvis Disposition: Admission Dakota Beltran DO Emergency Medicine Past Med/Surg History Problem List (Updated 08/19/24 @ 22:54 by Dakota Beltran DO) Abdominal pain (Acute) Abnormal CT scan Osteoporosis LBBB (left bundle branch block) Bradycardia Stented coronary artery Brain TIA (Acute) Deafness in right ear Asthma (Chronic) Type 2 diabetes mellitus (Chronic) Osteoarthritis (Chronic) Hypertension (Chronic) Hyperlipidemia (Chronic) History of heart attack (06/2017) GERD without esophagitis (Chronic) Coronary artery disease (Chronic) Insomnia Hematuria Recurrent UTI (urinary tract infection) Pulmonary nodule Mild cognitive impairment Right knee DJD Surgical History S/P cardiac catheterization 10/20/19- Dr. Emdond Bunch Cystocele with rectocele Repaired H/O heart artery stent (06/2017) History of cholecystectomy History of total hysterectomy with removal of both tubes and ovaries d/t DUB Family History Brother Alcoholism Son Coronary heart disease Daughter Coronary heart disease Hypertension Myocardial infarction NM age 58 Sister Dementia Other No pertinent family history Denies family history of Ovarian cancer Prostate cancer Breast cancer Colorectal cancer Social History Smoking Status: Never smoker Tobacco Type: Cigarettes Age Started Using Tobacco: 18; Age Quit Using Tobacco: 28; packs per day: 3; Cigarettes Per Day: 3 ppd since age 18, quit 1967; Second Hand Exposure: No; Do You Dip or Chew Tobacco: No; Hx Alcohol Use: No Hx Substance Use: No Preferred Language: [place] Communication Ability: Effective Visual Impairment: No Limitations Hearing Ability: Use of Hearing Aid [employer]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 Beliefs That Will Affect Care: None marital status: Single Current Living Situation: Family and Significant Other Current Living Situation Comment: lives with fiance and daughter in law 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 Safe at Home: Yes Childhood Exposure to Second-Hand Smoke: Yes Diet: regular Diet Comment: regular caffeine: Yes (Coffee and Tea - half cup occasional - no soda) during the past year weight has: remained stable Dental Care, Regularly: Yes Physical Activity Frequency: Daily Physical Activity Frequency Comment: Walking/stationary bike Seatbelt Use: always Sunscreen Use: Yes Assistive Devices: Cane and Walker Allergies Allergies Allergy/AdvReac Type Severity Reaction Status Date / Time Penicillins Allergy Unknown hives Verified 08/19/24 10:53 omeprazole Allergy Verified 08/19/24 10:53 pantoprazole Allergy Verified 08/19/24 10:53 rabeprazole Allergy Verified 08/19/24 10:53 ranolazine [From Ranexa] Allergy Verified 08/19/24 10:53 peanut AdvReac Intermediate GI Symptoms Unverified 08/19/24 10:53 Home Meds Home Medications Medication Instructions Recorded Confirmed cyanocobalamin (vitamin B-12) 1,000 mcg PO QAM 08/06/22 08/19/24 1,000 mcg tablet (Vitamin B-12) omega-3 acid ethyl esters 1 gram 1 cap PO BID 08/19/24 08/19/24 capsule tramadol 50 mg tablet 50 mg PO BID PRN Pain 08/19/24 08/19/24 Previous Rx's Medication Instructions Recorded multivitamin 1 tab PO DAILY #30 tabs 04/24/19 cholecalciferol (vitamin D3) 50 2,000 units PO DAILY #90 tabs 10/27/19 mcg (2,000 unit) tablet albuterol sulfate 90 mcg/actuation 2 puff inhalation Q6H PRN 01/30/24 aerosol inhaler (Ventolin HFA) shortness of breath or wheezing #54 grams lisinopril 10 mg tablet 10 mg PO DAILY #100 tabs 02/14/24 metformin 500 mg tablet,extended 500 mg PO DAILY #100 tabs 02/14/24 release 24 hr memantine 10 mg tablet 10 mg PO BID #60 tabs 04/03/24 blood sugar diagnostic #100 ea 04/18/24 lancets 33 gauge #100 ea 04/18/24 lysine 1,000 mg tablet 1,000 mg PO DAILY #90 tabs 06/11/24 fluticasone furoate 100 1 inh inhalation DAILY #30 ea 07/03/24 mcg/actuation blister powder for inhalation (Arnuity Ellipta) Vascepa 1 gram capsule (icosapent 2 g (2 x 1 gram) PO BID #120 caps 07/08/24 ethyl) atorvastatin 20 mg tablet 20 mg PO DAILY #100 tabs 07/31/24 amlodipine 2.5 mg tablet 2.5 mg PO DAILY #90 tabs 08/05/24 clopidogrel 75 mg tablet 75 mg PO DAILY #90 tabs 08/05/24 famotidine 40 mg tablet 40 mg PO BID #180 tabs 08/05/24 montelukast 10 mg tablet 10 mg PO QPM #90 tabs 08/05/24 magnesium oxide 400 mg PO DAILY #90 tabs 08/06/24 Results & Data (ED) Vital Signs Vital Signs - 24 hr 08/19/24 18:12 08/19/24 18:36 08/19/24 18:47 Temperature 36.8 C Temperature Source Temporal Artery Scan Pulse Rate 74 78 Pulse Rate [Apical] 78 Pulse Rate from SpO2 Sensor Pulse Rhythm Pulse Rhythm [Apical] Regular Pulse Strength [Apical] Normal Respiratory Rate 18 20 Respiratory Effort / Characteristics Non-Labored Non-Labored Spontaneous Respiratory Depth Normal Normal Respiratory Pattern Regular Regular Blood Pressure 126/79 Blood Pressure [Right Arm] 138/72 Blood Pressure Mean 94 Blood Pressure Mean [Right Arm] 94 Blood Pressure Position [Right Arm] Lying Pulse Oximetry 97 96 Oxygen Delivery Method Room Air Room Air Sepsis Recent Fever Within 48 Hours No Sepsis New/Unexplained Change in Mental Status N/A Sepsis Action Taken by Nursing No Action Required 08/19/24 18:47 08/19/24 19:03 08/19/24 20:30 Temperature Temperature Source Pulse Rate 78 72 63 Pulse Rate [Apical] Pulse Rate from SpO2 Sensor 72 64 Pulse Rhythm Regular Pulse Rhythm [Apical] Pulse Strength [Apical] Respiratory Rate 20 22 20 Respiratory Effort / Characteristics Respiratory Depth Respiratory Pattern Blood Pressure 138/82 Blood Pressure [Right Arm] Blood Pressure Mean 100 Blood Pressure Mean [Right Arm] Blood Pressure Position [Right Arm] Pulse Oximetry 96 96 96 Oxygen Delivery Method Room Air Room Air Room Air Sepsis Recent Fever Within 48 Hours Sepsis New/Unexplained Change in Mental Status Sepsis Action Taken by Nursing 08/19/24 21:42 08/19/24 21:48 08/19/24 22:09 Temperature Temperature Source Pulse Rate 60 58 L 56 L Pulse Rate [Apical] Pulse Rate from SpO2 Sensor 60 58 L 57 L Pulse Rhythm Pulse Rhythm [Apical] Pulse Strength [Apical] Respiratory Rate 13 18 17 Respiratory Effort / Characteristics Respiratory Depth Respiratory Pattern Blood Pressure 163/76 H 163/76 H 165/111 H Blood Pressure [Right Arm] Blood Pressure Mean 105 105 129 Blood Pressure Mean [Right Arm] Blood Pressure Position [Right Arm] Pulse Oximetry 96 96 98 Oxygen Delivery Method Room Air Room Air Room Air Sepsis Recent Fever Within 48 Hours Sepsis New/Unexplained Change in Mental Status Sepsis Action Taken by Nursing 08/19/24 22:30 08/19/24 22:34 Temperature Temperature Source Pulse Rate 55 L 55 L Pulse Rate [Apical] Pulse Rate from SpO2 Sensor 53 L Pulse Rhythm Pulse Rhythm [Apical] Pulse Strength [Apical] Respiratory Rate 23 Respiratory Effort / Characteristics Respiratory Depth Respiratory Pattern Blood Pressure 162/121 H Blood Pressure [Right Arm] Blood Pressure Mean 134 Blood Pressure Mean [Right Arm] Blood Pressure Position [Right Arm] Pulse Oximetry 97 Oxygen Delivery Method Room Air Sepsis Recent Fever Within 48 Hours Sepsis New/Unexplained Change in Mental Status Sepsis Action Taken by Nursing Laboratory Data 08/19/24 18:45 08/19/24 18:45 Lab Results 08/19/24 Range/Units 18:45 WBC 5.93 (4.8-10.8) K/ul RBC 4.49 (4.20-5.40) M/uL Hgb 13.6 (12.0-16.0) g/dl Hct 41.2 (37.0-47.0) % MCV 91.8 (80.0-100.0) fL MCH 30.3 (25.0-34.0) pg MCHC 33.0 (32.0-36.0) g/dL RDW Std Deviation 45.3 (36.4-46.3) fL RDW Coeff of Des 13.3 (11.5-14.5) % Plt Count 194 (130-400) K/uL MPV 9.4 (9.4-12.4) fL Immature Gran % (Auto) 0.2 % Neut % (Auto) 54.9 % Lymph % (Auto) 32.9 % [place] % (Auto) 8.9 % Eos % (Auto) 1.9 % Baso % (Auto) 1.2 % Neut # (Auto) 3.26 (1.40-6.50) K/uL Lymph # (Auto) 1.95 (1.20-3.40) K/uL [place] # (Auto) 0.53 (0.11-0.59) K/uL Eos # (Auto) 0.11 (0.00-0.50) K/uL Baso # (Auto) 0.07 (0.00-0.20) K/uL Immature Gran # (Auto) 0.01 (0.01-0.20) K/uL PT 10.4 (9.0-12.0) Seconds INR 1.0 (0.9-1.1) APTT 25 (21-31) Seconds PTT Ratio 0.9 Sodium 138 (136-145) mmol/L Potassium 4.0 (3.5-5.1) mmol/L Chloride 103 (98-107) mmol/L Carbon Dioxide 25 (21-32) mmol/L Anion Gap 10 (3-11) BUN 29 H (6-23) mg/dl Creatinine 1.24 H (0.6-1.2) mg/dl Est Cr Clr Drug Dosing 27.1 ml/min eGFR 42.91 BUN/Creatinine Ratio 23.4 H (10-20) Glucose 223 H (70-99(Fasting)) mg/dl Calcium 9.4 (8.6-10.3) mg/dl Total Bilirubin 0.5 (0.2-1.0) mg/dl AST 30 (13-39) U/L ALT 28 (7-52) U/L Alkaline Phosphatase 74 (34-104) U/L Troponin I High Sens 12.3 (0-14) pg/ml Total Protein 7.2 (6.0-8.3) gm/dl Albumin 4.4 (3.4-5.0) gm/dl Globulin 2.8 (2.5-4.0) gm/dl Albumin/Globulin Ratio 1.6 (0.9-2) Lipase 114 H (11-82) U/L Administered Medications Sodium Chloride (Nss) 500 mls @ 80 mls/hr IV .Q6H15M BREEZY Stop: 08/20/24 03:59 Last Admin: 08/19/24 21:54 Dose: 80 mls/hr Documented By: SABINA Discontinued Medications Bisacodyl (Bisacodyl 10 Mg Supp) 10 mg OH NOW STA Stop: 08/19/24 21:32 Last Admin: 08/19/24 21:54 Dose: 10 mg Documented By: SABINA Imaging Data Radiologist's Impression: Chest X-Ray 08/19/24 18:17 SINGLE VIEW CHEST CLINICAL HISTORY: Atypical chest pain. FINDINGS: An AP upright chest radiograph is compared to study dated 06/12/2023. Correlation is made with chest CT dated 06/27/2022. The heart is mildly enlarged. The pulmonary vasculature is noncongested. Chronic thickening is similar to previous. The lungs and pleural spaces are clear. No pneumothorax is seen. The skeletal structures are osteopenic. The bony thorax is grossly intact. Arthritic change is noted in the shoulders. Cholecystectomy clips are noted in the right upper quadrant. IMPRESSION: No active disease in the chest. ACT 112: Negative or not required by law. Electronically signed by: Gavin Reyes M.D. 08/19/2024 7:30 PM Discharge Plan Visit Data Chief Complaint: GI Assessment Stated Complaint: BOWEL WRAPPED AROUND LIVER, SEVERE ABD PAIN, DOC R ED Provider: Dakota Beltran Discharge Problem: Abdominal pain Forms Stand Alone Forms: My [facility] Bright Funds Prescriptions Prescriptions: No Action lisinopril 10 mg tablet 10 mg PO DAILY Qty: 100 1RF metformin 500 mg tablet extended release 24 hr 500 mg PO DAILY Qty: 100 3RF (DME) blood sugar diagnostic Strip See Rx Instructions .Route Qty: 100 5RF Rx Instructions: Onetouch Ultra Blue Test Strips / test once daily E11.9 (DME) lancets 33 gauge misc See Rx Instructions .ROUTE .MEDSUPPLY Qty: 100 5RF Rx Instructions: Test once daily. DX: E11.9 One Touch Verio Reflect lysine 1,000 mg tablet 1,000 mg PO DAILY Qty: 90 1RF icosapent ethyl [Vascepa] 1 gram capsule 2 g PO BID Qty: 120 2RF atorvastatin 20 mg tablet 20 mg PO DAILY Qty: 100 1RF famotidine 40 mg tablet 40 mg PO BID Qty: 180 3RF montelukast 10 mg tablet 10 mg PO QPM Qty: 90 1RF clopidogrel 75 mg tablet 75 mg PO DAILY Qty: 90 1RF amlodipine 2.5 mg tablet 2.5 mg PO DAILY Qty: 90 1RF magnesium oxide 400 mg magnesium tablet 400 mg PO DAILY Qty: 90 2RF multivitamin tablet 1 tab PO DAILY Qty: 30 5RF cholecalciferol (vitamin D3) 2,000 unit tablet 2,000 units PO DAILY Qty: 90 3RF memantine 10 mg tablet 10 mg PO BID Qty: 60 5RF Rx Instructions: Take one tablet daily for one month, then take twice daily Arnuity Ellipta 100 mcg/actuation blister with device 1 inh INH DAILY Qty: 30 5RF albuterol sulfate [Ventolin HFA] 90 mcg/actuation HFA aerosol inhaler 2 puff INH Q6H PRN (Reason: shortness of breath or wheezing) Qty: 54 0RF cyanocobalamin (vitamin B-12) [Vitamin B-12] 1,000 mcg tablet 1,000 mcg PO QAM tramadol 50 mg tablet 50 mg PO BID PRN (Reason: Pain) omega-3 acid ethyl esters 1 gram capsule 1 cap PO BID Referrals Referrals: Kaylen Leonardo DO [Primary Care Provider] -
[2024-08-19 19:04] LABS: Basophils # (auto) 0.07 K/uL (0.00-0.20); Basophils % (auto) 1.2 %; Eosinophils # (auto) 0.11 K/uL (0.00-0.50); Eosinophils % (auto) 1.9 %; Hematocrit (blood only) 41.2 % (37.0-47.0); Hemoglobin 13.6 g/dl (12.0-16.0); Immature Granulocytes # (auto) 0.01 K/uL (0.01-0.20); Immature Granulocytes % (auto) 0.2 %; Lymphocytes # (auto) 1.95 K/uL (1.20-3.40); Lymphocytes % (auto) 32.9 %; Mean Corpuscular Hemoglobin 30.3 pg (25.0-34.0); Mean Corpuscular Volume 91.8 fL (80.0-100.0); Mean Platelet Volume 9.4 fL (9.4-12.4); Monocytes # (auto) 0.53 K/uL (0.11-0.59); Monocytes % (auto) 8.9 %; Neutrophils # (auto) 3.26 K/uL (1.40-6.50); Neutrophils % (auto) 54.9 %; Platelet Count 194 K/uL (130-400); RDW Coefficient of Variation 13.3 % (11.5-14.5); RDW Standard Deviation 45.3 fL (36.4-46.3); Red Blood Count 4.49 M/uL (4.20-5.40); White Blood Count 5.93 K/ul (4.8-10.8)
[2024-08-19 19:17] LABS: Albumin Globulin Ratio 1.6 (0.9-2); Albumin Level 4.4 gm/dl (3.4-5.0); BUN Creatinine Ratio 23.4 (10-20); Bilirubin,Total 0.5 mg/dl (0.2-1.0); Calcium 9.4 mg/dl (8.6-10.3); Creatinine Clr Calc Pharmacy 27.1 ml/min; Globulin 2.8 gm/dl (2.5-4.0); Total Protein 7.2 gm/dl (6.0-8.3)
[2024-08-19 19:21] LABS: Troponin I High Sensitivity 12.3 pg/ml (0-14)
[2024-08-19 19:26] LABS: Partial Thromboplastin Ratio 0.9; Partial Thromboplastin Time 25 Seconds (21-31); Prothrombin Time 10.4 Seconds (9.0-12.0)
--- NOTE | 2024-08-19 19:32 | XRay Report ---
SINGLE VIEW CHEST CLINICAL HISTORY: Atypical chest pain. FINDINGS: An AP upright chest radiograph is compared to study dated 06/12/2023. Correlation is made wit h chest CT dated 06/27/2022. The heart is mildly enlarged. The pulmonary vasculature is noncongested. Chronic thickening is similar to previous. The lungs and pleural spaces are clear. No pneumothorax is seen. The skeletal structures are osteopenic. The bony thorax is grossly intact. Arthritic change is noted in the shoulders. Cholecystectomy clips are noted in the right upper quadrant. IMPRESSION: No active disease in the chest. ACT 112: Negative or not required by law. Electronically signed by: Gavin Reyes M.D. 08/19/2024 7:30 PM
--- NOTE | 2024-08-19 20:00 | Surgery Consultation ---
Date of Consultation August 19, 2024 Assessment & Plan (1) Abnormal CT scan: I evaluated the patient in room C9 in the emergency department. From surgery perspective we recommend the following: At the present time the patient's abdomen is entirely benign After discussion with the family we presented him with the option of being discharged home or observation in the hospital overnight. As the patient lives nearly an hour away from the hospital they would feel more comfortable being observed in the hospital overnight. Therefore the patient admitted to the medical service. Feel be acceptable for the patient have sips of clear liquids this evening Repeat labs to be performed in the morning She will be reevaluated the morning and determination be made if any further diagnostic evaluation is needed Time my exam the patient was noted to be nontoxicthat she was normotensive without tachycardia or fever and did not exhibit leukocytosis. Her abdominal exam was entirely benign Additional recommendations with forthcoming based on her clinical course as it unfolds History of Present Illness Reason for Consultation: Abnormal abdominal CT scan History of Present Illness This is a 84-year-old female who presented to the emergency department at the recommendation of her primary care physician. Approximately 3 to 4 days ago the patient was experiencing some epigastric pain with some radiation to her back. She denied any nausea or vomiting. She had no fevers, shakes, or chills. Patient says she went to the emergency department [facility] where the patient underwent a CT scan. According to the patient's family CT scan shows findings similar to what is noted on his CT scan performed as an outpatient today (will be delineated below). I asked the patient other symptomatology and she notes that she has chronic constipation. She notes that she did have a bowel movement yesterday which was normal in caliber for her and she denies any change in her bowel habits. Patient does report that she has had a colonoscopy in the past but it has been several years. To the best of her knowledge there were no concerning findings noted on this study. Earlier today the patient had an outpatient CT scan which showed the patient had anterior interposition of the colon over the liver. There is no intraperitoneal free air. Because of the CT scan findings the patient was referred to the emergency department by her primary care physician. In the emergency department the patient had a chest x-ray that showed no evidence of pneumonia. Labs include a CBC were white blood cell count, hemoglobin, hematocrit, and platelet count were normal. Chemistry profile showed sodium and potassium are normal. Her BUN and creatinine were slightly elevated at 29 and 1.2 (this level of creatinine was near the patient's baseline). Coagulation studies were noted to be normal. The patient was noted to have a slight elevation of her lipase at 114. At the time of my interview she was resting comfortably bed she was in no distress Allergies Allergy/AdvReac Type Severity Reaction Status Date / Time Penicillins Allergy Unknown hives Verified 08/19/24 10:53 omeprazole Allergy Verified 08/19/24 10:53 pantoprazole Allergy Verified 08/19/24 10:53 rabeprazole Allergy Verified 08/19/24 10:53 ranolazine [From Ranexa] Allergy Verified 08/19/24 10:53 peanut AdvReac Intermediate GI Symptoms Unverified 08/19/24 10:53 Home Medications Medication Instructions Recorded Confirmed Type multivitamin 1 tab PO DAILY #30 tabs 04/24/19 08/19/24 Rx cholecalciferol (vitamin D3) 50 2,000 units PO DAILY #90 tabs 10/27/19 08/19/24 Rx mcg (2,000 unit) tablet cyanocobalamin (vitamin B-12) 1,000 mcg PO QAM 08/06/22 08/19/24 History 1,000 mcg tablet (Vitamin B-12) albuterol sulfate 90 mcg/actuation 2 puff inhalation Q6H PRN 01/30/24 08/19/24 Rx aerosol inhaler (Ventolin HFA) shortness of breath or wheezing #54 grams lisinopril 10 mg tablet 10 mg PO DAILY #100 tabs 02/14/24 08/19/24 Rx metformin 500 mg tablet,extended 500 mg PO DAILY #100 tabs 02/14/24 08/19/24 Rx release 24 hr memantine 10 mg tablet 10 mg PO BID #60 tabs 04/03/24 08/19/24 Rx blood sugar diagnostic #100 ea 04/18/24 08/19/24 Rx lancets 33 gauge #100 ea 04/18/24 08/19/24 Rx lysine 1,000 mg tablet 1,000 mg PO DAILY #90 tabs 06/11/24 08/19/24 Rx fluticasone furoate 100 1 inh inhalation DAILY #30 ea 07/03/24 08/19/24 Rx mcg/actuation blister powder for inhalation (Arnuity Ellipta) Vascepa 1 gram capsule (icosapent 2 g (2 x 1 gram) PO BID #120 caps 07/08/24 08/19/24 Rx ethyl) atorvastatin 20 mg tablet 20 mg PO DAILY #100 tabs 07/31/24 08/19/24 Rx amlodipine 2.5 mg tablet 2.5 mg PO DAILY #90 tabs 08/05/24 08/19/24 Rx clopidogrel 75 mg tablet 75 mg PO DAILY #90 tabs 08/05/24 08/19/24 Rx famotidine 40 mg tablet 40 mg PO BID #180 tabs 08/05/24 08/19/24 Rx montelukast 10 mg tablet 10 mg PO QPM #90 tabs 08/05/24 08/19/24 Rx magnesium oxide 400 mg PO DAILY #90 tabs 08/06/24 08/19/24 Rx omega-3 acid ethyl esters 1 gram 1 cap PO BID 08/19/24 08/19/24 History capsule tramadol 50 mg tablet 50 mg PO BID PRN Pain 08/19/24 08/19/24 History Patient History Surgical History S/P cardiac catheterization 10/20/19- Dr. Edmond Bunch Cystocele with rectocele Repaired H/O heart artery stent (06/2017) History of cholecystectomy History of total hysterectomy with removal of both tubes and ovaries d/t DUB Family History Brother Alcoholism Son Coronary heart disease Daughter Coronary heart disease Hypertension Myocardial infarction ID age 58 Sister Dementia Other No pertinent family history Denies family history of Ovarian cancer Prostate cancer Breast cancer Colorectal cancer Social History Smoking Status: Never smoker Tobacco Type: Cigarettes Age Started Using Tobacco: 18; Age Quit Using Tobacco: 28; packs per day: 3; Cigarettes Per Day: 3 ppd since age 18, quit 1967; Second Hand Exposure: No; Do You Dip or Chew Tobacco: No; Hx Alcohol Use: No Hx Substance Use: No Preferred Language: [place]ish Communication Ability: Effective Visual Impairment: No Limitations Hearing Ability: Use of Hearing Aid 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 Beliefs That Will Affect Care: None marital status: Single Current Living Situation: Family and Significant Other Current Living Situation Comment: lives with fiance and daughter in law 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 Safe at Home: Yes Childhood Exposure to Second-Hand Smoke: Yes Diet: regular Diet Comment: regular caffeine: Yes (Coffee and Tea - half cup occasional - no soda) during the past year weight has: remained stable Dental Care, Regularly: Yes Physical Activity Frequency: Daily Physical Activity Frequency Comment: Walking/stationary bike Seatbelt Use: always Sunscreen Use: Yes Assistive Devices: Cane and Walker Physical Exam Constitutional: WD/WN, vitals as above Eyes: no conjunctival abnormality ENMT: Ears: no hearing impairment and no external ear abnormality Mouth: no oropharynx abnormality Neck: trachea midline Respiratory: normal respiratory effort; no respiratory distress and no labored breathing Cardiovascular: Rate/Rhythm: regular rate and regular rhythm Gastrointestinal (Abdomen): At the time of my exam the patient's abdomen was noted and nondistended. It was soft and nonrigid. Bowel sounds are present. There is no rebound tenderness or guarding. There is no pain with palpation. Musculoskeletal: No calf tenderness Skin: no rashes Neurologic: moves all extremities Psychiatric: A+Ox3, euthymic affect Results & Data Vital Signs (Past 12 Hours) Vital Signs Temp Pulse Pulse Resp BP BP Pulse Ox 08/19/24 18:47 78 20 96 08/19/24 18:47 78 20 138/72 96 08/19/24 18:36 78 08/19/24 18:12 36.8 C 74 18 126/79 97 O2 Del Method 08/19/24 18:47 Room Air 08/19/24 18:47 Room Air 08/19/24 18:36 08/19/24 18:12 Room Air PG Care Time/CCT Total # of Minutes Spent Total Time Spent with Patient: Total time spent is greater than 50% in coordination of care (as documented) at patient's floor/unit and/or counseling patient: Coding Level of Care Code 24157 INT INP/OBS CARE 3/75MIN Diagnoses Abnormal CT scan R93.89
--- NOTE | 2024-08-19 21:37 | History & Physical Report ---
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 tomorrow, advance as tolerated Acetaminophen 650 mg by mouth every 6 hours as needed for mild pain Continue famotidine 40 mg p.o. twice daily General Surgery consulted and will follow the patient. Not anticipating need for surgery CAD/hypertension/history of stented coronary artery/acute kidney injury- Creatinine 1.24, with base 1.14 Continue clopidogrel, amlodipine Holding lisinopril IV fluids as noted Recheck laboratories in the a.m. Diabetes mellitus- Hold metformin Glucose 223 on admission Placed on Accu-Cheks with NovoLog SSI Check hemoglobin A1c Asthma- Continue Arnuity Ellipta 1 puff daily, montelukast 10 mg daily, and Ventolin HFA as needed Dementia/memory loss/history of brain TIA- Continue memantine, clopidogrel History of Present Illness Chief Complaint: Patient presents to the emergency department with complaint of being awoken from sleep at 1:30 AM 3 mornings ago with right upper quadrant and flank pain, along with epigastric pain. She went to the emergency department in [place], where she was assessed and then discharged to home.. Due to persistence of her d iscomfort, she had a CT scan performed earlier in the day on 08/19, was told that her bowel was in front of her liver, and she was told to come to the emergency department at [facility] for further assessment. Patient's contributed significantly to HPI and ROS, due to patient's underlying memory dysfunction. Primary Care Provider: Kaylen Leonardo DO The patient is an 84-year-old female with a past medical history including left bundle branch block, bradycardia, stented coronary artery, brain TIA, diabetes mellitus type 2, hypertension, hyperlipidemia, history of PA, GERD, CAD, mild cognitive impairment and memory loss, and insomnia. The patient presents to the emergency department after being referred by her outpatient physician due to abnormal CT as noted. After ED discussion with general surgery, [facility] is consulted for admission. In addition, the patient reports that she chronically has problems with bowel movements, which may take every 3 days, and in the intervening time has abdominal cramping and discomfort. She reports that she drinks large amounts of water. She has occasionally used MiraLAX with benefit Allergies Allergy/AdvReac Type Severity Reaction Status Date / Time Penicillins Allergy Unknown hives Verified 08/19/24 10:53 omeprazole Allergy Verified 08/19/24 10:53 pantoprazole Allergy Verified 08/19/24 10:53 rabeprazole Allergy Verified 08/19/24 10:53 ranolazine [From Ranexa] Allergy Verified 08/19/24 10:53 peanut AdvReac Intermediate GI Symptoms Unverified 08/19/24 10:53 Home Medications Medication Instructions Recorded Confirmed Type multivitamin 1 tab PO DAILY #30 tabs 04/24/19 08/19/24 Rx cholecalciferol (vitamin D3) 50 2,000 units PO DAILY #90 tabs 10/27/19 08/19/24 Rx mcg (2,000 unit) tablet cyanocobalamin (vitamin B-12) 1,000 mcg PO QAM 08/06/22 08/19/24 History 1,000 mcg tablet (Vitamin B-12) albuterol sulfate 90 mcg/actuation 2 puff inhalation Q6H PRN 01/30/24 08/19/24 Rx aerosol inhaler (Ventolin HFA) shortness of breath or wheezing #54 grams lisinopril 10 mg tablet 10 mg PO DAILY #100 tabs 02/14/24 08/19/24 Rx metformin 500 mg tablet,extended 500 mg PO DAILY #100 tabs 02/14/24 08/19/24 Rx release 24 hr memantine 10 mg tablet 10 mg PO BID #60 tabs 04/03/24 08/19/24 Rx blood sugar diagnostic #100 ea 04/18/24 08/19/24 Rx lancets 33 gauge #100 ea 04/18/24 08/19/24 Rx lysine 1,000 mg tablet 1,000 mg PO DAILY #90 tabs 06/11/24 08/19/24 Rx fluticasone furoate 100 1 inh inhalation DAILY #30 ea 07/03/24 08/19/24 Rx mcg/actuation blister powder for inhalation (Arnuity Ellipta) Vascepa 1 gram capsule (icosapent 2 g (2 x 1 gram) PO BID #120 caps 07/08/24 08/19/24 Rx ethyl) atorvastatin 20 mg tablet 20 mg PO DAILY #100 tabs 07/31/24 08/19/24 Rx amlodipine 2.5 mg tablet 2.5 mg PO DAILY #90 tabs 08/05/24 08/19/24 Rx clopidogrel 75 mg tablet 75 mg PO DAILY #90 tabs 08/05/24 08/19/24 Rx famotidine 40 mg tablet 40 mg PO BID #180 tabs 08/05/24 08/19/24 Rx montelukast 10 mg tablet 10 mg PO QPM #90 tabs 08/05/24 08/19/24 Rx magnesium oxide 400 mg PO DAILY #90 tabs 08/06/24 08/19/24 Rx omega-3 acid ethyl esters 1 gram 1 cap PO BID 08/19/24 08/19/24 History capsule tramadol 50 mg tablet 50 mg PO BID PRN Pain 08/19/24 08/19/24 History Past Med/Surg History Problem List (Updated 08/20/24 @ 03:25 by Abraham Reis MD) Chronic constipation Abdominal pain (Acute) Abnormal CT scan Osteoporosis LBBB (left bundle branch block) Bradycardia Stented coronary artery Brain TIA (Acute) Deafness in right ear Asthma (Chronic) Type 2 diabetes mellitus (Chronic) Osteoarthritis (Chronic) Hypertension (Chronic) Hyperlipidemia (Chronic) History of heart attack (06/2017) GERD without esophagitis (Chronic) Coronary artery disease (Chronic) Insomnia Hematuria Recurrent UTI (urinary tract infection) Pulmonary nodule Mild cognitive impairment Right knee DJD Surgical History S/P cardiac catheterization 10/20/19- Dr. Edmond Bunch Cystocele with rectocele Repaired H/O heart artery stent (06/2017) History of cholecystectomy History of total hysterectomy with removal of both tubes and ovaries d/t DUB Family History Brother Alcoholism Son Coronary heart disease Daughter Coronary heart disease Hypertension Myocardial infarction PA age 58 Sister Dementia Other No pertinent family history Denies family history of Ovarian cancer Prostate cancer Breast cancer Colorectal cancer Social History Smoking Status: Never smoker Tobacco Type: Cigarettes Age Started Using Tobacco: 18; Age Quit Using Tobacco: 28; packs per day: 3; Cigarettes Per Day: 3 ppd since age 18, quit 1967; Second Hand Exposure: No; Do You Dip or Chew Tobacco: No; Hx Alcohol Use: No Hx Substance Use: No Preferred Language: Armenian Communication Ability: Effective Visual Impairment: No Limitations Hearing Ability: Use of Hearing Aid Lounge Car Attendant Required: No Beliefs That Will Affect Care: None marital status: Single Current Living Situation: Family and Significant Other Current Living Situation Comment: lives with fiance and daughter in law 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 Safe at Home: Yes Childhood Exposure to Second-Hand Smoke: Yes Diet: regular Diet Comment: regular caffeine: Yes (Coffee and Tea - half cup occasional - no soda) during the past year weight has: remained stable Dental Care, Regularly: Yes Physical Activity Frequency: Daily Physical Activity Frequency Comment: Walking/stationary bike Seatbelt Use: always Sunscreen Use: Yes Assistive Devices: Cane and Walker Review of Systems Review of Systems: The patient denies chest pain, palpitations, shortness of breath, dyspnea on exertion, cough, lower extremity swelling, sore throat, fevers, chills, sweats, nausea, vomiting, blood in urine or stool, dysuria, urinary frequency or urgency, lightheadedness, dizziness, headache, loss of consciousness, rash, abnormal bruising or bleeding, imbalance, focal weakness, numbness or tingling in arms or legs, generalized arthralgias or myalgias, back or neck pain, or night sweats. The review of systems is otherwise negative other than for that already noted above, and at least 10 systems have been reviewed. Physical Exam Physical Exam: The patient is awake, alert and oriented 3, well developed and well nourished, normocephalic and atraumatic, lying in bed and in no acute distress. HEENT--PERRL, EOMI, mucous membranes and oropharynx mildly dry. Neck--supple. No JVD. No bruits. Thyroid normal, trachea midline, no adenopathy. Heart--normal S1 and S2. No murmurs, rubs or gallops. Lungs--clear bilaterally, no respiratory distress, no accessory muscle use. Abdomen--normal bowel sounds and soft. Nontender. Nondistended Extremities--no cyanosis or clubbing. No edema. Dermatologic--normal skin turgor, normal color, no abnormal lymph nodes, no rash . Neurologic--cranial nerves II through XII grossly intact. Rheumatologic--normal range of motion. Psychiatric--normal affect. Results & Data Results & Data Vital Signs (Past 12 Hours) Vital Signs Temp Pulse Pulse Resp BP BP Pulse Ox 08/19/24 20:30 63 20 96 08/19/24 19:03 72 22 138/82 96 08/19/24 18:47 78 20 96 08/19/24 18:47 78 20 138/72 96 08/19/24 18:36 78 08/19/24 18:12 36.8 C 74 18 126/79 97 O2 Del Method 08/19/24 20:30 Room Air 08/19/24 19:03 Room Air 08/19/24 18:47 Room Air 08/19/24 18:47 Room Air 08/19/24 18:36 08/19/24 18:12 Room Air Laboratory Results Laboratory Results WBC 5.93 K/ul (4.8-10.8) 08/19/24 18:45 RBC 4.49 M/uL (4.20-5.40) 08/19/24 18:45 Hgb 13.6 g/dl (12.0-16.0) 08/19/24 18:45 Hct 41.2 % (37.0-47.0) 08/19/24 18:45 MCV 91.8 fL (80.0-100.0) 08/19/24 18:45 MCH 30.3 pg (25.0-34.0) 08/19/24 18:45 MCHC 33.0 g/dL (32.0-36.0) 08/19/24 18:45 RDW Std Deviation 45.3 fL (36.4-46.3) 08/19/24 18:45 RDW Coeff of Des 13.3 % (11.5-14.5) 08/19/24 18:45 Plt Count 194 K/uL (130-400) 08/19/24 18:45 MPV 9.4 fL (9.4-12.4) 08/19/24 18:45 Immature Gran % (Auto) 0.2 % 08/19/24 18:45 Neut % (Auto) 54.9 % 08/19/24 18:45 Lymph % (Auto) 32.9 % 08/19/24 18:45 [place] % (Auto) 8.9 % 08/19/24 18:45 Eos % (Auto) 1.9 % 08/19/24 18:45 Baso % (Auto) 1.2 % 08/19/24 18:45 Neut # (Auto) 3.26 K/uL (1.40-6.50) 08/19/24 18:45 Lymph # (Auto) 1.95 K/uL (1.20-3.40) 08/19/24 18:45 [place] # (Auto) 0.53 K/uL (0.11-0.59) 08/19/24 18:45 Eos # (Auto) 0.11 K/uL (0.00-0.50) 08/19/24 18:45 Baso # (Auto) 0.07 K/uL (0.00-0.20) 08/19/24 18:45 Immature Gran # (Auto) 0.01 K/uL (0.01-0.20) 08/19/24 18:45 PT 10.4 Seconds (9.0-12.0) 08/19/24 18:45 INR 1.0 (0.9-1.1) 08/19/24 18:45 APTT 25 Seconds (21-31) 08/19/24 18:45 PTT Ratio 0.9 08/19/24 18:45 Sodium 138 mmol/L (136-145) 08/19/24 18:45 Potassium 4.0 mmol/L (3.5-5.1) 08/19/24 18:45 Chloride 103 mmol/L (98-107) 08/19/24 18:45 Carbon Dioxide 25 mmol/L (21-32) 08/19/24 18:45 Anion Gap 10 (3-11) 08/19/24 18:45 BUN 29 mg/dl (6-23) H 08/19/24 18:45 Creatinine 1.24 mg/dl (0.6-1.2) H 08/19/24 18:45 Est Cr Clr Drug Dosing 27.1 ml/min 08/19/24 18:45 eGFR 42.91 08/19/24 18:45 BUN/Creatinine Ratio 23.4 (10-20) H 08/19/24 18:45 Glucose 223 mg/dl (70-99(Fasting)) H 08/19/24 18:45 Calcium 9.4 mg/dl (8.6-10.3) 08/19/24 18:45 Total Bilirubin 0.5 mg/dl (0.2-1.0) 08/19/24 18:45 AST 30 U/L (13-39) 08/19/24 18:45 ALT 28 U/L (7-52) 08/19/24 18:45 Alkaline Phosphatase 74 U/L (34-104) 08/19/24 18:45 Troponin I High Sens 12.3 pg/ml (0-14) 08/19/24 18:45 Total Protein 7.2 gm/dl (6.0-8.3) 08/19/24 18:45 Albumin 4.4 gm/dl (3.4-5.0) 08/19/24 18:45 Globulin 2.8 gm/dl (2.5-4.0) 08/19/24 18:45 Albumin/Globulin Ratio 1.6 (0.9-2) 08/19/24 18:45 Lipase 114 U/L (11-82) H 08/19/24 18:45 Impressions Chest X-Ray 08/19/24 18:17 SINGLE VIEW CHEST CLINICAL HISTORY: Atypical chest pain. FINDINGS: An AP upright chest radiograph is compared to study dated 06/12/2023. Correlation is made with chest CT dated 06/27/2022. The heart is mildly enlarged. The pulmonary vasculature is noncongested. Chronic thickening is similar to previous. The lungs and pleural spaces are clear. No pneumothorax is seen. The skeletal structures are osteopenic. The bony thorax is grossly intact. Arthritic change is noted in the shoulders. Cholecystectomy clips are noted in the right upper quadrant. IMPRESSION: No active disease in the chest. ACT 112: Negative or not required by law. Electronically signed by: Gavin Reyes M.D. 08/19/2024 7:30 PM Code Status & VTE Plan Code Status Full code VTE Prophylaxis Plan VTE Prophylaxis will be ordered: Yes PG Care Time/CCT Total # of Minutes Spent Total Time Spent with Patient: Total time spent is greater than 50% in coordination of care (as documented) at patient's floor/unit and/or counseling patient: Coding Level of Care Code 77437 INT INP/OBS CARE 3/75MIN Diagnoses Abdominal pain R10.[address] scan R93.89 Chronic constipation K59.09 Type 2 diabetes mellitus E11.9 Primary hypertension I10 Hypertension type: primary hypertension Coronary artery disease involving [place] coronary artery of [place] heart without angina pectoris I25.10 Coronary Disease-Associated Artery/Lesion type: [place] artery [place] vs. transplanted heart: [place] heart Associated angina: without angina Mild cognitive impairment G31.84 GERD without esophagitis K21.9 Brain TIA G45.9 Stented coronary artery Z95.5 (5) Hypertension Hypertension type: primary hypertension Qualified Code(s): I10 - Essential (primary) hypertension (6) Coronary artery disease Coronary Disease-Associated Artery/Lesion type: [place] artery [place] vs. transplanted heart: [place] heart Associated angina: without angina Qualified Code(s): I25.10 - Atherosclerotic heart disease of [place] coronary artery without angina pectoris
[2024-08-19] MEDS: SODIUM CHLORIDE 0.9% 500 ML IV SCH (21:54)
[2024-08-19] MEDS: bisacodyL 10 MG SUPP PR STA (21:54)
[2024-08-20] MEDS ORDERED: ONDANSETRON INJ 2 MG/ML 2 ML VIAL IV PRN (01:57)
[2024-08-20] MEDS ORDERED: GLUCAGON FOR INJ 1 MG VIAL SQ PRN (01:57)
[2024-08-20] MEDS ORDERED: DEXTROSE 50% 50 ML SYRINGE IV PRN (01:57)
[2024-08-20] MEDS ORDERED: GLUCOSE 40% GEL 15 GM TUBE PO PRN (01:57)
[2024-08-20] MEDS ORDERED: ACETAMINOPHEN 325 MG TAB PO PRN (01:57)
[2024-08-20] MEDS ORDERED: CARBOHYDRATES FOR HYPOGLYCEMIA PO PRN (01:57)
[2024-08-20] MEDS ORDERED: ALBUTEROL HFA 8 GM INHALER INH PRN (01:57)
[2024-08-20] MEDS ORDERED: GLUCOSE 10 TAB/TUBE PO PRN (01:57)
[2024-08-20 07:04] LABS: Basophils # (auto) 0.04 K/uL (0.00-0.20); Basophils % (auto) 0.8 %; Eosinophils # (auto) 0.11 K/uL (0.00-0.50); Eosinophils % (auto) 2.2 %; Hematocrit (blood only) 38.7 % (37.0-47.0); Hemoglobin 12.7 g/dl (12.0-16.0); Immature Granulocytes # (auto) 0.02 K/uL (0.01-0.20); Immature Granulocytes % (auto) 0.4 %; Lymphocytes # (auto) 1.73 K/uL (1.20-3.40); Lymphocytes % (auto) 34.7 %; Mean Corpuscular Hemoglobin 30.1 pg (25.0-34.0); Mean Corpuscular Hgb Conc 32.8 g/dL (32.0-36.0); Mean Corpuscular Volume 91.7 fL (80.0-100.0); Mean Platelet Volume 9.4 fL (9.4-12.4); Monocytes # (auto) 0.49 K/uL (0.11-0.59); Monocytes % (auto) 9.8 %; Neutrophils % (auto) 52.1 %; Platelet Count 172 K/uL (130-400); RDW Coefficient of Variation 13.4 % (11.5-14.5); RDW Standard Deviation 45.6 fL (36.4-46.3); Red Blood Count 4.22 M/uL (4.20-5.40); White Blood Count 4.99 K/ul (4.8-10.8)
[2024-08-20 07:20] LABS: Estimated Average Glucose 169 mg/dl; Hemoglobin A1C 7.5 % (4.5-5.6)
[2024-08-20 07:45] LABS: Albumin Level 3.9 gm/dl (3.4-5.0); BUN Creatinine Ratio 20.6 (10-20); Creatinine Clr Calc Pharmacy 30.2 ml/min; Phosphorus 3.4 mg/dl (2.5-4.9); Potassium 3.7 mmol/L (3.5-5.1)
--- NOTE | 2024-08-20 07:56 | Surgery Progress Note ---
Date of Service August 20, 2024 Assessment & Plan (1) Abnormal CT scan: Plan: Denies Abd pain. N/V , on full liquid diet reports BM yesterday c/o right middle back pain will continue conservation treatment No acute surgical intervention indicated Pt may f/u outpatient if desires will follow peripherally call with questions/concerns pt seen. pain has recurred... pain with inspiration as well.... pain epigastric, RUQ, and into her right back. will consult GI to eval for decompression..start enemas....diet to clears only...gentle IV hydration. pain control. will also check lactic acid level though clinically doubt ischemia. Admission and Anticipated Discharge Date Admission Date: August 19, 2024 Subjective No abd pain, no n/v c/o back pain Review of Systems Gastrointestinal: no abdominal pain, no nausea and no vomiting Musculoskeletal: + back pain (right middle ) Physical Exam Constitutional: cooperative and comfortable; no acute distress Respiratory: normal respiratory effort and able to speak in complete sentences; no respiratory distress Gastrointestinal (Abdomen): Inspection/Auscultation: abdomen not distended Percussion/Palpation: abdomen soft; abdomen nontender Musculoskeletal: no cyanosis or clubbing, extremities motor strength 5/5 Results & Data Vital Signs (Past 12 Hours) Vital Signs Temp Pulse Pulse Resp BP BP Pulse Ox 08/20/24 07:05 96.8 F L 57 L 16 167/81 H 99 08/20/24 03:24 97.7 F 58 L 18 169/66 H 100 08/20/24 02:48 57 L 12 149/77 H 99 08/20/24 02:30 54 L 10 L 96 08/20/24 02:30 149/77 H 08/20/24 02:30 149/77 H 08/20/24 02:06 52 L 15 96 08/20/24 02:04 52 L 08/20/24 01:33 51 L 13 96 08/20/24 01:30 133/76 08/20/24 01:27 54 L 16 96 08/20/24 01:21 27 H 08/20/24 01:00 130/64 08/20/24 00:54 54 L 13 95 08/20/24 00:36 76 19 08/20/24 00:06 54 L 12 95 08/20/24 00:00 156/75 H 08/19/24 23:33 54 L 13 96 08/19/24 23:30 158/96 H 08/19/24 23:00 174/83 H 08/19/24 22:34 55 L 08/19/24 22:30 55 L 23 162/121 H 97 08/19/24 22:09 56 L 17 165/111 H 98 08/19/24 21:48 58 L 18 163/76 H 96 08/19/24 21:42 60 13 163/76 H 96 08/19/24 20:30 63 20 96 O2 Del Method 08/20/24 07:05 Room Air 08/20/24 03:24 Room Air 08/20/24 02:48 Room Air 08/20/24 02:30 08/20/24 02:30 08/20/24 02:30 08/20/24 02:06 08/20/24 02:04 08/20/24 01:33 08/20/24 01:30 08/20/24 01:27 08/20/24 01:21 08/20/24 01:00 08/20/24 00:54 08/20/24 00:36 08/20/24 00:06 08/20/24 00:00 08/19/24 23:33 08/19/24 23:30 08/19/24 23:00 08/19/24 22:34 08/19/24 22:30 Room Air 08/19/24 22:09 Room Air 08/19/24 21:48 Room Air 08/19/24 21:42 Room Air 08/19/24 20:30 Room Air PG Care Time/CCT Total # of Minutes Spent Total Time Spent with Patient: Total time spent is greater than 50% in coordination of care (as documented) at patient's floor/unit and/or counseling patient: Coding Level of Care Code 32161 SUB INP/OBS CARE 2/35MIN Diagnoses Abnormal CT scan R93.89
[2024-08-20] MEDS: FAMOTIDINE 40 MG TABLET PO SCH (07:57)
[2024-08-20] MEDS: CLOPIDOGREL BISULFATE 75 MG TAB PO SCH (07:57)
[2024-08-20] MEDS: CHOLECALCIFEROL 25 MCG (1000 UNITS) TAB PO SCH (07:57)
[2024-08-20] MEDS: MULTIVITAMIN TAB PO SCH (07:58)
[2024-08-20] MEDS: MAGNESIUM OXIDE 400 MG TAB PO SCH (07:58)
[2024-08-20] MEDS: MEMANTINE HCL 10 MG TAB PO SCH (07:58)
[2024-08-20] MEDS: amLODIPine BESYLATE 5 MG TAB PO SCH (07:58)
[2024-08-20] MEDS: CYANOCOBALAMIN (B-12) 500 MCG TABLET PO SCH (07:58)
[2024-08-20] MEDS: ATORVASTATIN 20 MG TAB PO SCH (07:59)
[2024-08-20] MEDS: FLUTICASONE FUROATE 100MCG 14 PUFFS/INHALER INH SCH (08:00)
[2024-08-20] MEDS: traMADol HCL 50 MG TABLET PO PRN (09:19)
[2024-08-20] MEDS: INSULIN ASPART PER UNIT CHARGE SC SCH (09:24)
[2024-08-20] MEDS ORDERED: ACETAMINOPHEN 1,000 MG/100 ML VIAL IV PRN (10:45)
--- NOTE | 2024-08-20 10:45 | Hospitalist Progress Note ---
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 - Suspect symptoms are at least in part aggravated by her chronic constipation - Patient does not have scheduled bowel regimen at home, just uses MiraLAX PRN - Lactate WNL, no signs of ischemia or shock - Was on full liquid diet, but due to increased pain was downgraded to clear liquid diet - Continue aggressive bowel regimen inpatient. +BM 08/20 - General surgery consulted - continue pain control, clear liquid diet, enemas - GI consulted - recommend scheduled bowel regimen (MiraLAX 1 capful daily), if pain returns consider KUB - Tramadol on hold as to not further aggravate constipation - Continue famotidine 40 mg p.o. twice daily, IV Tylenol for pain/fever (2) Type 2 diabetes mellitus: Plan: Hold metformin while inpatient Continue Accu-Cheks with NovoLog SSI Hemoglobin A1c 7.5% on 08/20 (3) Coronary artery disease: Plan: CAD / hypertension / history of stented coronary artery / acute kidney injury - Creatinine 1.24 on admission, with base 1.14 -- YAIR resolved after 500 cc IVF on admission - Continue clopidogrel, amlodipine - Holding lisinopril (4) Chronic constipation: (5) Mild cognitive impairment: Plan Discussed case with general surgery Downgraded diet to clear liquid Ordered IV Tylenol Chronic/Stable Conditions: - Asthma: Continue Arnuity Ellipta 1 puff daily, montelukast 10 mg daily, and Ventolin HFA as needed - Dementia/memory loss/history of brain TIA: Continue memantine, clopidogrel CODE STATUS: Full code Admission and Anticipated Discharge Date Admission Date: August 19, 2024 Subjective Patient seen and evaluated at bedside with her . She reports a small bowel movement this morning. She notes ongoing issues of chronic constipation at home; she does not take a scheduled bowel regimen at home, just as needed. She reports that her pain was initially improving, but then returned again around breakfast time. She states it is a sharp pain in her mid-back that radiates to her right shoulder and sometimes radiates anteriorly near her sternum/RUQ. She denies any nausea or vomiting. We discussed downgrading her diet to clear liquids, using an aggressive bowel regimen, encouraging oral hydration, and switching her pain regimen from tramadol to IV Tylenol to avoid further constipation. She is agreeable to the plan. No additional complaints or concerns at this time. Physical Exam Physical Exam: General: No acute distress, nondiaphoretic, well-developed, well-nourished. Cardiac: Regular rate and rhythm without murmurs gallops or rubs. Pulm: Clear to auscultation bilaterally without wheezes, rales or rhonchi. No respiratory distress. 99% on room air. Abdominal: Soft, nontender, nondistended. Bowel sounds present. No guarding or rebound tenderness. No organomegaly. Neuro: A&O x3. No focal neurological deficits. Results & Data Results & Data Vital Signs (Past 12 Hours) Vital Signs Temp Pulse Pulse Resp BP BP Pulse Ox 08/20/24 07:05 96.8 F L 57 L 16 167/81 H 99 08/20/24 03:24 97.7 F 58 L 18 169/66 H 100 08/20/24 02:48 57 L 12 149/77 H 99 08/20/24 02:30 54 L 10 L 96 08/20/24 02:30 149/77 H 08/20/24 02:30 149/77 H 08/20/24 02:06 52 L 15 96 08/20/24 02:04 52 L 08/20/24 01:33 51 L 13 96 08/20/24 01:30 133/76 08/20/24 01:27 54 L 16 96 08/20/24 01:21 27 H 08/20/24 01:00 130/64 08/20/24 00:54 54 L 13 95 08/20/24 00:36 76 19 08/20/24 00:06 54 L 12 95 08/20/24 00:00 156/75 H 08/19/24 23:33 54 L 13 96 08/19/24 23:30 158/96 H 08/19/24 23:00 174/83 H O2 Del Method 08/20/24 07:05 Room Air 08/20/24 03:24 Room Air 08/20/24 02:48 Room Air 08/20/24 02:30 08/20/24 02:30 08/20/24 02:30 08/20/24 02:06 08/20/24 02:04 08/20/24 01:33 08/20/24 01:30 08/20/24 01:27 08/20/24 01:21 08/20/24 01:00 08/20/24 00:54 08/20/24 00:36 08/20/24 00:06 08/20/24 00:00 08/19/24 23:33 08/19/24 23:30 08/19/24 23:00 Laboratory Results Reviewed CBC Reviewed coags Reviewed CMP Diagnostic Findings Reviewed CXR Reviewed CT A/P PG Care Time/CCT Total # of Minutes Spent Total Time Spent with Patient: Total time spent is greater than 50% in coordination of care (as documented) at patient's floor/unit and/or counseling patient: Coding Level of Care Code 59900 SUB INP/OBS CARE 3/50MIN Diagnoses Abdominal pain R10.9 Type 2 diabetes mellitus E11.9 Coronary artery disease involving [place] coronary artery of [place] heart without angina pectoris I25.10 Associated angina: without angina Coronary Disease-Associated Artery/Lesion type: [place] artery [place] vs. transplanted heart: [place] heart Chronic constipation K59.09 Mild cognitive impairment G31.84 (3) Coronary artery disease Associated angina: without angina Coronary Disease-Associated Artery/Lesion type: [place] artery [place] vs. transplanted heart: [place] heart Qualified Code(s): I25.10 - Atherosclerotic heart disease of [place] coronary artery without angina pectoris
[2024-08-20] MEDS ORDERED: traMADol HCL 50 MG TABLET PO PRN (11:19)
--- NOTE | 2024-08-20 11:30 | Gastrointestinal Consultation ---
<Statement entered by Bony Gong MD - 08/20/24 14:59> Patient seen and examined, case discussed with Jaky RAYMUNDO. Patient currently only c/o some mild shoulder pain but no abdominal pain after she moved her bowels and passed flatus. Rec: Continue bowel regimen and avoid constipation. 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 GI was asked to evaluate for "chialditi syndrome, ?need for colonic decompression." She was pain free on my evaluation, abd soft, non-distended with active bowel sounds. No obvious acute indication for endoscopic evaluation with review of CT yesterday. If pain returns, consider a KUB. Recommend a scheduled bowel regimen in the setting or narcotic analgesia use. Miralax 1 capful daily. Thank you for allowing us to participate in the care of this patient. Please call with any acute changes, questions or concerns. Please see addendum below with additional recommendation from my supervising physician. I spent a total of 60 minutes on the date of service in review of patient's record, and previously obtained information in person and appropriate medical visit, discussion and education of plan, with patient and/or caregiver, placing orders for tests/referral/procedures as medically necessary and documentation of pertinent clinical information in patient's medical records for their visit today. 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 GI was asked to evaluate for "chialditi syndrome, ?need for colonic decompression." Pt was seen and evaluated, chart reviewed. She is a poor historian. Suggests she has had abd pain, epigastric in location radiating to her shoulder blade. Denies nausea or vomiting. No reflux or regurgitation. No dysphagia. Notes this AM she is feeling better. She tells me she is completely symptoms free at this time. Denies abd pain. Suggests her last BM was yesterday. Normal per patient. No report of black or bloody stools. No fever, chills, CP, SOB. Was seen by general surgery w/ recommendations of repeat lactic acid and and enemas. WBC 4.9 HGB 12.7 HCT 38.7 PLT 172 INR 1 HUMAN RESOURCES ADVISOR 1.07 A1C 7.5 Tbili 0.5 AST 30 ALT 28 ALKP 74 Lipase 64 CTAP 08/19/2024: Liver: Unremarkable. No focal lesions are seen. Gallbladder and biliary tree: Patient is status post cholecystectomy. Physiologic prominence of the biliary ducts is noted. Pancreas: Unremarkable, no focal lesions. Bowel: Unremarkable. 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 There is anterior interposition of the colon the liver. No evidence of pneumoperitoneum. Stable pulmonary nodule as above. Additional incidental findings. 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 EGD 2019: [facility] [address] [facility] GE junction with mild mucosal break Colonoscopy 2015: [facility] moderately enlarge internal hemorrhoids Colonoscopy 2009: [facility] no report Allergies Allergy/AdvReac Type Severity Reaction Status Date / Time Penicillins Allergy Unknown hives Verified 08/19/24 10:53 omeprazole Allergy Verified 08/19/24 10:53 pantoprazole Allergy Verified 08/19/24 10:53 rabeprazole Allergy Verified 08/19/24 10:53 ranolazine [From Ranexa] Allergy Verified 08/19/24 10:53 peanut AdvReac Intermediate GI Symptoms Unverified 08/19/24 10:53 Home Medications Medication Instructions Recorded Confirmed Type multivitamin 1 tab PO DAILY #30 tabs 04/24/19 08/19/24 Rx cholecalciferol (vitamin D3) 50 2,000 units PO DAILY #90 tabs 10/27/19 08/19/24 Rx mcg (2,000 unit) tablet cyanocobalamin (vitamin B-12) 1,000 mcg PO QAM 08/06/22 08/19/24 History 1,000 mcg tablet (Vitamin B-12) albuterol sulfate 90 mcg/actuation 2 puff inhalation Q6H PRN 01/30/24 08/19/24 Rx aerosol inhaler (Ventolin HFA) shortness of breath or wheezing #54 grams lisinopril 10 mg tablet 10 mg PO DAILY #100 tabs 02/14/24 08/19/24 Rx metformin 500 mg tablet,extended 500 mg PO DAILY #100 tabs 02/14/24 08/19/24 Rx release 24 hr memantine 10 mg tablet 10 mg PO BID #60 tabs 04/03/24 08/19/24 Rx blood sugar diagnostic #100 ea 04/18/24 08/19/24 Rx lancets 33 gauge #100 ea 04/18/24 08/19/24 Rx lysine 1,000 mg tablet 1,000 mg PO DAILY #90 tabs 06/11/24 08/19/24 Rx fluticasone furoate 100 1 inh inhalation DAILY #30 ea 07/03/24 08/19/24 Rx mcg/actuation blister powder for inhalation (Arnuity Ellipta) Vascepa 1 gram capsule (icosapent 2 g (2 x 1 gram) PO BID #120 caps 07/08/24 08/19/24 Rx ethyl) atorvastatin 20 mg tablet 20 mg PO DAILY #100 tabs 07/31/24 08/19/24 Rx amlodipine 2.5 mg tablet 2.5 mg PO DAILY #90 tabs 08/05/24 08/19/24 Rx clopidogrel 75 mg tablet 75 mg PO DAILY #90 tabs 08/05/24 08/19/24 Rx famotidine 40 mg tablet 40 mg PO BID #180 tabs 08/05/24 08/19/24 Rx montelukast 10 mg tablet 10 mg PO QPM #90 tabs 08/05/24 08/19/24 Rx magnesium oxide 400 mg PO DAILY #90 tabs 08/06/24 08/19/24 Rx omega-3 acid ethyl esters 1 gram 1 cap PO BID 08/19/24 08/19/24 History capsule tramadol 50 mg tablet 50 mg PO BID PRN Pain 08/19/24 08/19/24 History Patient History Surgical History S/P cardiac catheterization Cystocele with rectocele H/O heart artery stent (06/2017) History of cholecystectomy History of total hysterectomy with removal of both tubes and ovaries Family History Brother Alcoholism Son Coronary heart disease Daughter Coronary heart disease Hypertension Myocardial infarction Sister Dementia Other No pertinent family history Denies family history of Ovarian cancer Prostate cancer Breast cancer Colorectal cancer Social History Smoking Status: Former smoker Tobacco Type: Cigarettes Age Started Using Tobacco: 18; Age Quit Using Tobacco: 28; packs per day: 3; Cigarettes Per Day: 3 ppd since age 18, quit 1967; Second Hand Exposure: No; Do You Dip or Chew Tobacco: No; Hx Alcohol Use: No Hx Substance Use: No Preferred Language: Latvian Communication Ability: Effective Visual Impairment: No Limitations Hearing Ability: Use of Hearing Aid Narrow Fabric Calenderer Required: No Beliefs That Will Affect Care: None marital status: Single Current Living Situation: Spouse and Family Current Living Situation Comment: lives with fiance and daughter in law 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 Safe at Home: Yes Childhood Exposure to Second-Hand Smoke: Yes Diet: regular Diet Comment: regular caffeine: Yes (Coffee and Tea - half cup occasional - no soda) during the past year weight has: remained stable Dental Care, Regularly: Yes Physical Activity Frequency: Daily Physical Activity Frequency Comment: Walking/stationary bike Seatbelt Use: always Sunscreen Use: Yes Assistive Devices: Denture - Upper, Glasses and Hearing Aid - Left Review of Systems Review of Systems: All other findings negative except as noted in HPI. Physical Exam Constitutional: WD/WN, vitals as above Respiratory: normal respiratory effort, lungs clear to auscultation Cardiovascular: Rate/Rhythm: regular rate and regular rhythm Gastrointestinal (Abdomen): normal bowel sounds, soft, nontender, no hepatosplenomegaly Skin: no rashes, warm and dry Results & Data Vital Signs (Past 12 Hours) Vital Signs Temp Pulse Pulse Resp BP BP Pulse Ox 08/20/24 07:05 36 C L 57 L 16 167/81 H 99 08/20/24 03:24 36.5 C 58 L 18 169/66 H 100 08/20/24 02:48 57 L 12 149/77 H 99 08/20/24 02:30 54 L 10 L 96 08/20/24 02:30 149/77 H 08/20/24 02:30 149/77 H 08/20/24 02:06 52 L 15 96 08/20/24 02:04 52 L 08/20/24 01:33 51 L 13 96 08/20/24 01:30 133/76 08/20/24 01:27 54 L 16 96 08/20/24 01:21 27 H 08/20/24 01:00 130/64 08/20/24 00:54 54 L 13 95 08/20/24 00:36 76 19 08/20/24 00:06 54 L 12 95 08/20/24 00:00 156/75 H 08/19/24 23:33 54 L 13 96 08/19/24 23:30 158/96 H O2 Del Method 08/20/24 07:05 Room Air 08/20/24 03:24 Room Air 08/20/24 02:48 Room Air 08/20/24 02:30 08/20/24 02:30 08/20/24 02:30 08/20/24 02:06 08/20/24 02:04 08/20/24 01:33 08/20/24 01:30 08/20/24 01:27 08/20/24 01:21 08/20/24 01:00 08/20/24 00:54 08/20/24 00:36 08/20/24 00:06 08/20/24 00:00 08/19/24 23:33 08/19/24 23:30 Laboratory Results 08/20/24 08/20/24 08/20/24 Range/Units 11:26 08:10 06:17 WBC 4.99 (4.8-10.8) K/ul RBC 4.22 (4.20-5.40) M/uL Hgb 12.7 (12.0-16.0) g/dl Hct 38.7 (37.0-47.0) % MCV 91.7 (80.0-100.0) fL MCH 30.1 (25.0-34.0) pg MCHC 32.8 (32.0-36.0) g/dL RDW Std Deviation 45.6 (36.4-46.3) fL RDW Coeff of Des 13.4 (11.5-14.5) % Plt Count 172 (130-400) K/uL MPV 9.4 (9.4-12.4) fL Immature Gran % (Auto) 0.4 % Neut % (Auto) 52.1 % Lymph % (Auto) 34.7 % [place] % (Auto) 9.8 % Eos % (Auto) 2.2 % Baso % (Auto) 0.8 % Neut # (Auto) 2.60 (1.40-6.50) K/uL Lymph # (Auto) 1.73 (1.20-3.40) K/uL [place] # (Auto) 0.49 (0.11-0.59) K/uL Eos # (Auto) 0.11 (0.00-0.50) K/uL Baso # (Auto) 0.04 (0.00-0.20) K/uL Immature Gran # (Auto) 0.02 (0.01-0.20) K/uL PT (9.0-12.0) Seconds INR (0.9-1.1) APTT (21-31) Seconds PTT Ratio Sodium 141 (136-145) mmol/L Potassium 3.7 (3.5-5.1) mmol/L Chloride 106 (98-107) mmol/L Carbon Dioxide 28 (21-32) mmol/L Anion Gap 7 (3-11) BUN 22 (6-23) mg/dl Creatinine 1.07 (0.6-1.2) mg/dl Est Cr Clr Drug Dosing 30.2 ml/min eGFR 51.22 BUN/Creatinine Ratio 20.6 H (10-20) Glucose 160 H (70-99(Fasting)) mg/dl POC Glucose 144 H (70-99) mg/dl Estimat Average Glucose 169 mg/dl Hemoglobin A1c 7.5 H (4.5-5.6) % Lactate 1.1 (0.4-2.0) mmol/L Calcium 9.0 (8.6-10.3) mg/dl Phosphorus 3.4 (2.5-4.9) mg/dl Total Bilirubin (0.2-1.0) mg/dl AST (13-39) U/L ALT (7-52) U/L Alkaline Phosphatase (34-104) U/L Troponin I High Sens (0-14) pg/ml Total Protein (6.0-8.3) gm/dl Albumin 3.9 (3.4-5.0) gm/dl Globulin (2.5-4.0) gm/dl Albumin/Globulin Ratio (0.9-2) Lipase 64 (11-82) U/L 08/19/24 Range/Units 18:45 WBC 5.93 (4.8-10.8) K/ul RBC 4.49 (4.20-5.40) M/uL Hgb 13.6 (12.0-16.0) g/dl Hct 41.2 (37.0-47.0) % MCV 91.8 (80.0-100.0) fL MCH 30.3 (25.0-34.0) pg MCHC 33.0 (32.0-36.0) g/dL RDW Std Deviation 45.3 (36.4-46.3) fL RDW Coeff of Des 13.3 (11.5-14.5) % Plt Count 194 (130-400) K/uL MPV 9.4 (9.4-12.4) fL Immature Gran % (Auto) 0.2 % Neut % (Auto) 54.9 % Lymph % (Auto) 32.9 % [place] % (Auto) 8.9 % Eos % (Auto) 1.9 % Baso % (Auto) 1.2 % Neut # (Auto) 3.26 (1.40-6.50) K/uL Lymph # (Auto) 1.95 (1.20-3.40) K/uL [place] # (Auto) 0.53 (0.11-0.59) K/uL Eos # (Auto) 0.11 (0.00-0.50) K/uL Baso # (Auto) 0.07 (0.00-0.20) K/uL Immature Gran # (Auto) 0.01 (0.01-0.20) K/uL PT 10.4 (9.0-12.0) Seconds INR 1.0 (0.9-1.1) APTT 25 (21-31) Seconds PTT Ratio 0.9 Sodium 138 (136-145) mmol/L Potassium 4.0 (3.5-5.1) mmol/L Chloride 103 (98-107) mmol/L Carbon Dioxide 25 (21-32) mmol/L Anion Gap 10 (3-11) BUN 29 H (6-23) mg/dl Creatinine 1.24 H (0.6-1.2) mg/dl Est Cr Clr Drug Dosing 27.1 ml/min eGFR 42.91 BUN/Creatinine Ratio 23.4 H (10-20) Glucose 223 H (70-99(Fasting)) mg/dl POC Glucose (70-99) mg/dl Estimat Average Glucose mg/dl Hemoglobin A1c (4.5-5.6) % Lactate (0.4-2.0) mmol/L Calcium 9.4 (8.6-10.3) mg/dl Phosphorus (2.5-4.9) mg/dl Total Bilirubin 0.5 (0.2-1.0) mg/dl AST 30 (13-39) U/L ALT 28 (7-52) U/L Alkaline Phosphatase 74 (34-104) U/L Troponin I High Sens 12.3 (0-14) pg/ml Total Protein 7.2 (6.0-8.3) gm/dl Albumin 4.4 (3.4-5.0) gm/dl Globulin 2.8 (2.5-4.0) gm/dl Albumin/Globulin Ratio 1.6 (0.9-2) Lipase 114 H (11-82) U/L PG Care Time/CCT Total # of Minutes Spent Total Time Spent with Patient: Total time spent is greater than 50% in coordination of care (as documented) at patient's floor/unit and/or counseling patient: Coding Level of Care Code 77117 IN/OBS CONSULT LVL 4,60M Diagnoses Abdominal pain R10.9
[2024-08-20] MEDS: ACETAMINOPHEN 1,000 MG/100 ML VIAL IV SCH (12:35)
--- NOTE | 2024-08-20 15:08 | Electrocardiogram Report ---
Test Reason : Blood Pressure : */* mmHG Vent. Rate : 75 BPM Atrial Rate : 75 BPM P-R Int : 166 ms QRS Dur : 128 ms QT Int : 432 ms P-R-T Axes : 64 -36 133 degrees QTcB Int : 482 ms Sinus rhythm with occasional Premature ventricular complexes Left axis deviation Left bundle branch block Abnormal ECG When compared with ECG of 12-Jun-2023 19:35, Premature ventricular complexes are now Present Vent. rate has increased by 25 bpm Left bundle branch block is now Present Criteria for Anterior infarct are no longer Present Confirmed by Aristeo Douglas ([id number]) on 08/20/2024 3:07:52 PM Referred By: Kaylen Leonardo Confirmed By: Aristeo Douglas
[2024-08-20 16:11] VITALS: RESP 18
[2024-08-20] MEDS: bisacodyL 10 MG SUPP PR PRN (16:48)
[2024-08-20] MEDS: MONTELUKAST SODIUM 10 MG TABLET PO SCH (21:21)
--- NOTE | 2024-08-21 07:25 | Gastroenterology Progress Note ---
Date of Service August 21, 2024 Assessment & Plan (1) Abdominal pain: Plan: Resolved with bowel movements. Would continue bowel regimen and check abdominal series and hopefully loop of colon has went back into appropriate position. Admission and Anticipated Discharge Date Admission Date: August 19, 2024 Subjective Patient states she feels "fantastic." Slight if any shoulder pain and no abdominal pain. Review of Systems Review of Systems: Negative except for HPI and below. Gastrointestinal: States she felt better after enema and bowel movements. Physical Exam Physical Exam: WD WN WF NAD Afebrile VSS Respiratory: Clear anteriorly Cardiovascular: RRR Gastrointestinal (Abdomen): NL BS, soft, nontender Neurologic: A/O Results & Data Results & Data Vital Signs (Past 12 Hours) Vital Signs Temp Pulse Resp BP Pulse Ox O2 Del Method 08/21/24 07:11 36.4 C L 61 18 138/79 97 Room Air 08/20/24 20:13 36.4 C L 54 L 18 138/76 97 Room Air PG Care Time/CCT Total # of Minutes Spent Total Time Spent with Patient: Total time spent is greater than 50% in coordination of care (as documented) at patient's floor/unit and/or counseling patient: Coding Level of Care Code 43293 SUB INP/OBS CARE 1/25MIN Diagnoses Abdominal pain R10.9
--- NOTE | 2024-08-21 08:34 | Surgery Progress Note ---
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 She is passing BMs and flatus Tolerating clears, no nausea/vomiting Abdomen soft, non distended, non tender Will allow advancement to regular Should continue bowel regimen, at least a daily miralax Appreciate GI review of patient's case and their recommendations along with hospitalists assistance and support If diet tolerated we are okay with patient discharging to home today as above. feeling completely better. no pain. marilia diet. +bm ok from our standpoint for d/c Admission and Anticipated Discharge Date Admission Date: August 19, 2024 Subjective Patient reports feeling much better. She has had a few BMs after the enema's administered yesterday and feels better. Mild R shoulder pain, but no abdominal discomfort. No n/v. Could eat more. Physical Exam Physical Exam: awake/alert, no distress Respiratory: normal respiratory effort Gastrointestinal (Abdomen): Inspection/Auscultation: abdomen not distended Percussion/Palpation: abdomen soft; abdomen nontender Results & Data Vital Signs (Past 12 Hours) Vital Signs Temp Pulse Resp BP Pulse Ox O2 Del Method 08/21/24 07:11 97.5 F L 61 18 138/79 97 Room Air PG Care Time/CCT Total # of Minutes Spent Total Time Spent with Patient: Total time spent is greater than 50% in coordination of care (as documented) at patient's floor/unit and/or counseling patient: Coding Level of Care Code 14932 SUB INP/OBS CARE 25MIN Diagnoses Abdominal pain R10.9
[2024-08-21 09:32] LABS: Basophils # (auto) 0.05 K/uL (0.00-0.20); Eosinophils # (auto) 0.12 K/uL (0.00-0.50); Eosinophils % (auto) 2.4 %; Hematocrit (blood only) 38.6 % (37.0-47.0); Hemoglobin 12.4 g/dl (12.0-16.0); Immature Granulocytes # (auto) 0.01 K/uL (0.01-0.20); Immature Granulocytes % (auto) 0.2 %; Lymphocytes # (auto) 1.55 K/uL (1.20-3.40); Lymphocytes % (auto) 30.5 %; Mean Corpuscular Hgb Conc 32.1 g/dL (32.0-36.0); Mean Corpuscular Volume 93.5 fL (80.0-100.0); Mean Platelet Volume 9.2 fL (9.4-12.4); Monocytes # (auto) 0.42 K/uL (0.11-0.59); Monocytes % (auto) 8.3 %; Neutrophils # (auto) 2.93 K/uL (1.40-6.50); Neutrophils % (auto) 57.6 %; Platelet Count 174 K/uL (130-400); RDW Coefficient of Variation 13.6 % (11.5-14.5); RDW Standard Deviation 46.3 fL (36.4-46.3); Red Blood Count 4.13 M/uL (4.20-5.40); White Blood Count 5.08 K/ul (4.8-10.8)
[2024-08-21 10:06] LABS: Albumin Level 3.9 gm/dl (3.4-5.0); BUN Creatinine Ratio 14.4 (10-20); Calcium 8.3 mg/dl (8.6-10.3); Creatinine Clr Calc Pharmacy 25.9 ml/min; Phosphorus 3.4 mg/dl (2.5-4.9); Potassium 3.8 mmol/L (3.5-5.1)
--- NOTE | 2024-08-21 11:15 | XRay Report ---
PA CHEST RADIOGRAPH AND UPRIGHT AND SUPINE AP RADIOGRAPHS OF THE ABDOMEN CLINICAL HISTORY: Chilaiditi syndrome. COMPARISON STUDY: CT of the abdomen and pelvis chest radiograph August 19, 2024. FINDINGS: Lungs are clear. No pneumothorax or pleural effusion is present. Pulmonary vascularity is normal. Cardiomediastinal silhouette is normal. Lucency under the right hemidiaphragm represents gas within the hepatic flexure of the colon. There is no evidence for a bowel obstruction. The gallbladde r is surgically absent. No urinary calculi are identified. Amount of stool is within normal limits. N o evidence for free air. IMPRESSION: 1. No free air or evidence for a bowel obstruction. 2. No acute cardiopulmonary findings. 3. Lucency under the right hemidiaphragm which represents gas within the hepatic flexure of the colon . ACT 112: Negative or not required by law. Electronically signed by: Higinio Mares M.D. 08/21/2024 11:13 AM
[2024-08-21 15:35] VITALS: BP 131/71; PULSE 62; TEMP 97.7; O2SAT 100
[2024-08-21] MEDS: INFLUENZA VACC TS2024-25(65y+)/PF (IIV3) 0.5mL Syr IM ONE (16:27)
--- NOTE | 2024-08-21 18:13 | Discharge Summary ---
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 - Suspect symptoms are at least in part aggravated by her chronic constipation - Patient does not have scheduled bowel regimen at home, just uses MiraLAX PRN - Lactate WNL, no signs of ischemia or shock - Seen by both general surgery and GI - Significantly improved after aggressive bowel regimen - Recommended scheduled MiraLAX 1 capful daily on discharge - Follow-up with PCP in 1 week > Recommend repeat CT A/P in 2 weeks to monitor for resolution. Will defer ordering this to PCP (2) Type 2 diabetes mellitus: Hold metformin while inpatient Continue Accu-Cheks with NovoLog SSI Hemoglobin A1c 7.5% on 08/20 (3) Coronary artery disease: CAD / hypertension / history of stented coronary artery / acute kidney injury - Creatinine 1.24 on admission, with base 1.14 -- YAIR resolved after 500 cc IVF on admission - Continue clopidogrel, amlodipine - Held lisinopril inpatient (4) Chronic constipation: (5) Mild cognitive impairment: Plan Chronic/Stable Conditions: - Asthma: Continue Arnuity Ellipta 1 puff daily, montelukast 10 mg daily, and Ventolin HFA as needed - Dementia/memory loss/history of brain TIA: Continue memantine, clopidogrel CODE STATUS: Full code Notes For Next Care Provider 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 Suspect symptoms at least in part aggravated by her chronic constipation. She was evaluated by general surgery and GI, but just treated with medical management. She significantly improved after an aggressive bowel regimen. Discharged on MiraLAX 1 capful daily to prevent constipation. Recommend PCP follow-up in [address] A/P in 2 weeks. Will defer this to PCP Medication Changes From Visit Started MiraLAX 1 capful daily No other changes to home medications Admission HPI Per Admitting Provider The patient is an 84-year-old female with a past medical history including left bundle branch block, bradycardia, stented coronary artery, brain TIA, diabetes mellitus type 2, hypertension, hyperlipidemia, history of DE, GERD, CAD, mild cognitive impairment and memory loss, and insomnia. The patient presents to the emergency department after being referred by her outpatient physician due to abnormal CT as noted. After ED discussion with general surgery, [facility] service is consulted for admission. In addition, the patient reports that she chronically has problems with bowel movements, which may take every 3 days, and in the intervening time has abdominal cramping and discomfort. She reports that she drinks large amounts of water. She has occasionally used MiraLAX with benefit Admission Exam Per Admitting Provider The patient is awake, alert and oriented 3, well developed and well nourished, normocephalic and atraumatic, lying in bed and in no acute distress. HEENT--PERRL, EOMI, mucous membranes and oropharynx mildly dry. Neck--supple. No JVD. No bruits. Thyroid normal, trachea midline, no adenopathy. Heart--normal S1 and S2. No murmurs, rubs or gallops. Lungs--clear bilaterally, no respiratory distress, no accessory muscle use. Abdomen--normal bowel sounds and soft. Nontender. Nondistended Extremities--no cyanosis or clubbing. No edema. Dermatologic--normal skin turgor, normal color, no abnormal lymph nodes, no rash. Neurologic--cranial nerves II through XII grossly intact. Rheumatologic--normal range of motion. Psychiatric--normal affect. Discharge Exam General: No acute distress, nondiaphoretic, well-developed, well-nourished. Cardiac: Regular rate and rhythm without murmurs gallops or rubs. Pulm: Clear to auscultation bilaterally without wheezes, rales or rhonchi. No respiratory distress. 100% on room air. Abdominal: Soft, nontender, nondistended. Bowel sounds present. No guarding or rebound tenderness. No organomegaly. Neuro: A&O x3. No focal neurological deficits. Discharge Plan Discharge Items Patient Disposition: Home - Self-Care Reason For Visit: ABD PAIN,ABNORMAL CT,CONSTIPATION,DEHYDRATION Discharge Diagnosis: Chilaiditi syndrome Activity: Resume your previous activity Non-emergency contact: Primary Care Provider Call non-emergency contact if: you have any medication questions and your symptoms worsen Follow-up/Referrals: Kaylen Leonardo DO [Primary Care Provider] - 08/26/24 10:20 am (with Tsering VILLA) Diet: Carb Consistent or DM2 Addtl Attending Provider Instructions: Mrs. Lobo, You were admitted to the hospital because your CT of your abdomen/pelvis revealed interposition of your colon in front of your liver (Chilaiditi syndrome). I suspect that your symptoms of abdominal pain, referred back pain, referred shoulder pain were due at least in part by your chronic constipation. You were treated with an aggressive bowel regimen while in the hospital. Your pain nearly resolved after multiple bowel movements. It is very important to prevent constipation in the future. Of note, we tested you for COVID because your hospital roommate tested positive, but your COVID test was negative fortunately. Upon discharge from the hospital: * Start a daily bowel regimen. I recommend taking MiraLAX 1 capful daily. This will keep your bowels regular and hopefully will prevent constipation. * Continue your other home medications as prescribed. There have been no medication changes during this hospitalization. * Follow-up with your PCP in 1 week. * I recommend getting a repeat CT scan of your abdomen/pelvis in about 2 weeks to monitor for resolution. This can be discussed with and ordered by your PCP at your follow-up appointment. Please return to the hospital if you experience any of the following: Stiff/rigid abdomen, severe pain in your abdomen, blood in your stool, difficulty breathing, shortness of breath, chest pain, rapid heart rate, confusion, lightheadedness, dizziness, or passing out. It was a pleasure taking care of you while you were in the hospital, Wandy Pedro PA-C Pending Studies at Discharge: No Stand-Alone Forms: [facility], Smoking Cessation Medications and DC Order Prescriptions: Continued lisinopril 10 mg tablet 10 mg PO DAILY Qty: 100 1RF metformin 500 mg tablet extended release 24 hr 500 mg PO DAILY Qty: 100 3RF (DME) blood sugar diagnostic Strip See Rx Instructions .Route Qty: 100 5RF Rx Instructions: Onetouch Ultra Blue Test Strips / test once daily E11.9 (DME) lancets 33 gauge misc See Rx Instructions .ROUTE .MEDSUPPLY Qty: 100 5RF Rx Instructions: Test once daily. DX: E11.9 One Touch Verio Reflect lysine 1,000 mg tablet 1,000 mg PO DAILY Qty: 90 1RF icosapent ethyl [Vascepa] 1 gram capsule 2 g PO BID Qty: 120 2RF atorvastatin 20 mg tablet 20 mg PO DAILY Qty: 100 1RF famotidine 40 mg tablet 40 mg PO BID Qty: 180 3RF montelukast 10 mg tablet 10 mg PO QPM Qty: 90 1RF clopidogrel 75 mg tablet 75 mg PO DAILY Qty: 90 1RF amlodipine 2.5 mg tablet 2.5 mg PO DAILY Qty: 90 1RF magnesium oxide 400 mg magnesium tablet 400 mg PO DAILY Qty: 90 2RF multivitamin tablet 1 tab PO DAILY Qty: 30 5RF cholecalciferol (vitamin D3) 2,000 unit tablet 2,000 units PO DAILY Qty: 90 3RF memantine 10 mg tablet 10 mg PO BID Qty: 60 5RF Rx Instructions: Take one tablet daily for one month, then take twice daily Arnuity Ellipta 100 mcg/actuation blister with device 1 inh INH DAILY Qty: 30 5RF albuterol sulfate [Ventolin HFA] 90 mcg/actuation HFA aerosol inhaler 2 puff INH Q6H PRN (Reason: shortness of breath or wheezing) Qty: 54 0RF cyanocobalamin (vitamin B-12) [Vitamin B-12] 1,000 mcg tablet 1,000 mcg PO QAM tramadol 50 mg tablet 50 mg PO BID PRN (Reason: Pain) omega-3 acid ethyl esters 1 gram capsule 1 cap PO BID Discharge Orders: Discharge Order (Routine); Ordered 08/21/24 Ordered By: Wandy Peace/Other Patient Handouts: Managing Type 2 Diabetes, ED Constipation (Adult) Admission Data Admit Date/Time: 08/19/24 21:35 Attending Provider: Alberto Weston Admit Provider: Abraham Reis Primary Care Provider: Kaylen Leonardo Other Providers: Guillaume Calix; Abraham Reis; Elinor Dominguez; Willis Lopez; Lyn Thorne; Kristi Conway; Criselda De Paz; Pam Turcios; Josephine Moncada; Vidal Jo; Eliazar Skinner; Pauly Jenkins; Sakshi Thompson; Dixie Mitchell; Elba Starkey; Natalie Bond; Shaila Richmond; Winsome Calero; Marcia Green; Derrick Bray; Zenia Diaz; Tre Hodgson Jr; Mahesh Cordero; Rolando Fernandez; Zhou Pierce; Bony Gong; Mary Camarillo; Calderon Malhotra I; Basilia Sibley Other Interventions: Discharge Summary Assessment (RN) Last Done: 08/21/24 15:03 Hospital Stay Data Consultations 08/19/24 20:14 Consult General Surgery Routine 08/19/24 20:17 ED Decision to Admit Stat 08/20/24 11:11 Consult Gastroenterology Routine Diagnostic Imagining Performed Chest X-Ray 08/19/24 18:17 SINGLE VIEW CHEST CLINICAL HISTORY: Atypical chest pain. FINDINGS: An AP upright chest radiograph is compared to study dated 06/12/2023. Correlation is made with chest CT dated 06/27/2022. The heart is mildly enlarged. The pulmonary vasculature is noncongested. Chronic thickening is similar to previous. The lungs and pleural spaces are clear. No pneumothorax is seen. The skeletal structures are osteopenic. The bony thorax is grossly intact. Arthritic change is noted in the shoulders. Cholecystectomy clips are noted in the right upper quadrant. IMPRESSION: No active disease in the chest. ACT 112: Negative or not required by law. Electronically signed by: Gavin Reyes M.D. 08/19/2024 7:30 PM Chest/Abdomen X-ray 08/21/24 07:28 PA CHEST RADIOGRAPH AND UPRIGHT AND SUPINE AP RADIOGRAPHS OF THE ABDOMEN CLINICAL HISTORY: Chilaiditi syndrome. COMPARISON STUDY: CT of the abdomen and pelvis chest radiograph August 19, 2024. FINDINGS: Lungs are clear. No pneumothorax or pleural effusion is present. Pulmonary vascularity is normal. Cardiomediastinal silhouette is normal. Lucency under the right hemidiaphragm represents gas within the hepatic flexure of the colon. There is no evidence for a bowel obstruction. The gallbladder is surgically absent. No urinary calculi are identified. Amount of stool is within normal limits. No evidence for free air. IMPRESSION: 1. No free air or evidence for a bowel obstruction. 2. No acute cardiopulmonary findings. 3. Lucency under the right hemidiaphragm which represents gas within the hepatic flexure of the colon. ACT 112: Negative or not required by law. Electronically signed by: Higinio Mares M.D. 08/21/2024 11:13 AM Pending Results Patient Have Any Pending Studies at Discharge: No Discharge Instructions Given to Patient (Per Discharging Provider) Mrs. Lobo, David were admitted to the hospital because your CT of your abdomen/pelvis revealed interposition of your colon in front of your liver (Chilaiditi syndrome). I suspect that your symptoms of abdominal pain, referred back pain, referred shoulder pain were due at least in part by your chronic constipation. You were treated with an aggressive bowel regimen while in the hospital. Your pain nearly resolved after multiple bowel movements. It is very important to prevent constipation in the future. Of note, we tested you for COVID because your hospital roommate tested positive, but your COVID test was negative fortunately. Upon discharge from the hospital: * Start a daily bowel regimen. I recommend taking MiraLAX 1 capful daily. This will keep your bowels regular and hopefully will prevent constipation. * Continue your other home medications as prescribed. There have been no medication changes during this hospitalization. * Follow-up with your PCP in 1 week. * I recommend getting a repeat CT scan of your abdomen/pelvis in about 2 weeks to monitor for resolution. This can be discussed with and ordered by your PCP at your follow-up appointment. Please return to the hospital if you experience any of the following: Stiff/rigid abdomen, severe pain in your abdomen, blood in your stool, difficulty breathing, shortness of breath, chest pain, rapid heart rate, confusion, lightheadedness, dizziness, or passing out. It was a pleasure taking care of you while you were in the hospital, Wandy Pedro PA-C Total Time Total Time Spent Total Time Spent (In Minutes): Greater than 30 minutes spent completing this discharge process including direct patient care, medication reconciliation, documentation, review of labs and images, and coordination of care. Coding Level of Care Code 93401 INP/OBS DISCH >30 MIN Diagnoses Abdominal pain R10.9 Type 2 diabetes mellitus E11.9 Coronary artery disease involving quile[place] coronary artery of quileute heart without angina pectoris I25.10 Coronary Disease-Associated Artery/Lesion type: qu[place] artery [place] vs. transplanted heart: quileute heart Associated angina: without angina Chronic constipation K59.09 Mild cognitive impairment G31.84
== END 2024-08-21 16:28 | disposition home or self-care (01) ==
LOC: ED 18:08 → EDINP 18:08 → SUATTDRO 21:35 → 3N 08-20 02:48